=== PATIENT | female | born 1960 | race African-American/Black ===

== ENCOUNTER 2017-08-22 11:32 | Inpatient (IN) | payer OTHER ==
[~2017-08-22] VITALS: Ht 162.6 cm; Wt 79.8 kg
[~2017-08-22 11:32] MED LIST: ACETAMINOPHEN-1 EAC1 ORAL; ASPIRIN EC81 MG ORAL; AZITHROMYCIN250 MG ORAL; BENADRYL25 MG ORAL; COZAAR50 MG ORAL; GABAPENTIN100 MG ORAL; HYZAAR 100-12.1 EACH ORAL; IBUPROFEN600 MG ORAL; LIPITOR10 MG ORAL; MECLIZINE HCL25 MG ORAL; NAPROSYN375 M1 ORAL; NEURONTIN300 MG ORAL; NORCO 5-325 TA1 EAC1 ORAL; NORCO 5-325 TA1 EACH ORAL; NORVASC10 MG ORAL; OCEAN NASAL2 SPRAYS; UNOBMED; XANAX2 MG ORAL; ZITHROMAX250 MG ORAL; ZYRTEC10 MG ORAL
--- NOTE | 2017-08-22 11:50 | Emergency Room Report ---
History of Present Illness General Chief Complaint: Syncope Source: Patient, Medical Record Present Illness HPI Patient is a 56-year-old female who presented after increased left-sided increased pain and left-sided weakness. Patient reported having multiple falls recently. Patient states she has prior history of hypertension. Patient had recently passed out.The patient was brought in by private car.The patient reports having moderate headache. She prior history of thyroidectomy Allergies: Coded Allergies: CODEINE (Verified Allergy, Unknown, 02/23/16) TRAMADOL (Verified Allergy, Unknown, 04/08/15) Patient History Past Medical History: see triage record Reviewed Nursing Documentation: PMH: Agreed; PSxH: Agreed Nursing Documentation-PMH Past Medical History: No History, Except For Hx Hypertension: Yes Hx Pacemaker: No Hx Asthma: No Hx COPD: Yes Hx Diabetes: Yes - BORDERLINE Hx Cancer: No Hx Gastrointestinal Problems: Yes Hx Neurological Problems: Yes Hx Cerebrovascular Accident: No Hx Transient Ischemic Attacks: No Hx Dementia: No Hx Alzheimer's Disease: No Hx Parkinson's Disease: No Hx Meningitis: No Hx Encephalitis: No Hx Seizures: No Hx Epilepsy: No Hx Multiple Sclerosis: No Hx Cerebral Palsy: No Hx Amyotrophic Lat Sclerosis: No Hx Guillian-[place] Syndrome: No 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 Hx Peripheral Neuropathy: No Hx Spinal Cord Injury: No Hx Head Trauma: Yes Hx Traumatic Brain Injury: No Hx Memory Loss: No Hx Concentration Difficulty: No Hx Speech Problem: No Hx Tremors: No Hx Vertigo: No Hx Dizziness: Yes Hx Syncope: No Hx Headaches: Yes Hx Aphasia: No Hx Dysphasia: No Hx Numbness: No Hx Weakness: No Hx Fatigue: No Hx Neurologic Surgery: No Hx Brain Shunt: No Physical Exam Vital Signs Date Time Temp Pulse Resp B/P (MAP) Pulse Ox O2 Delivery O2 Flow Rate FiO2 08/22/17 11:41 98.3 80 17 119/64 97 Room Air 98.2 Sp02 EP Interpretation: reviewed, normal General Appearance: normal inspection, well appearing, no apparent distress, alert, obese Head: atraumatic ENT: normal ENT inspection, hearing grossly normal, normal voice Neck: normal inspection, full range of motion, supple, no bony tend Respiratory: normal inspection, lungs clear, normal breath sounds, no respiratory distress, no retraction, no wheezing Cardiovascular #1: regular rate, rhythm, no edema Gastrointestinal: normal inspection, normal bowel sounds, non tender, soft, no guarding, no hernia Genitourinary: no CVA tenderness Musculoskeletal: normal inspection, back normal, normal range of motion Neurologic: normal inspection, alert, responsive, speech normal, motor weakness - left side Psychiatric: normal inspection, judgement/insight normal, mood/affect normal Skin: normal inspection, normal color, no rash Medical Decision Making Diagnostic Impression: Primary Impression: Syncope Additional Impressions: H/O partial thyroidectomy Left-sided weakness ER Course Patient presented for left-sided weakness. The differential diagnosis included was not limited to fracture, CVA, contusion and among others.Because of complexity of patient's case laboratory testing and imaging studies were ordered. A CT imaging read by radiology showed a possible left internal capsule CVA. The patient was given pain medications. Laboratory studies were ordered.Patient was given aspirin.Dr. Hanks was contacted for inpatient management due to complexity of medical condition. Labs Test 08/22/17 11:55 08/22/17 12:30 White Blood Count 7.5 K/UL (4.8-10.8) Red Blood Count 4.22 M/UL (4.20-5.40) Hemoglobin 13.5 G/DL (12.0-16.0) Hematocrit 39.5 % (37.0-47.0) Mean Corpuscular Volume 94 FL (80-99) Mean Corpuscular Hemoglobin 32.1 PG (27.0-31.0) Mean Corpuscular Hemoglobin Concent 34.2 G/DL (32.0-36.0) Red Cell Distribution Width 11.5 % (11.6-14.8) Platelet Count 416 K/UL (150-450) Mean Platelet Volume 6.1 FL (6.5-10.1) Neutrophils (%) (Auto) 67.0 % (45.0-75.0) Lymphocytes (%) (Auto) 24.8 % (20.0-45.0) Monocytes (%) (Auto) 5.9 % (1.0-10.0) Eosinophils (%) (Auto) 0.5 % (0.0-3.0) Basophils (%) (Auto) 1.7 % (0.0-2.0) Sodium Level 139 MMOL/L (136-145) Potassium Level 3.5 MMOL/L (3.5-5.1) Chloride Level 102 MMOL/L (98-107) Carbon Dioxide Level 27 MMOL/L (21-32) Anion Gap 10 mmol/L (5-15) Blood Urea Nitrogen 5 mg/dL (7-18) Creatinine 1.0 MG/DL (0.55-1.30) Estimat Glomerular Filtration Rate > 60 mL/min (>60) Glucose Level 111 MG/DL (74-106) Calcium Level 9.4 MG/DL (8.5-10.1) Total Bilirubin 0.4 MG/DL (0.2-1.0) Aspartate Amino Transf (AST/SGOT) 20 U/L (15-37) Alanine Aminotransferase (ALT/SGPT) 24 U/L (12-78) Alkaline Phosphatase 72 U/L (46-116) Troponin I 0.000 ng/mL (0.000-0.056) Pro-B-Type Natriuretic Peptide 142 pg/mL (0-125) Total Protein 8.1 G/DL (6.4-8.2) Albumin 3.8 G/DL (3.4-5.0) Globulin 4.3 g/dL Albumin/Globulin Ratio 0.9 (1.0-2.7) Thyroid Stimulating Hormone (TSH) 0.769 uiU/mL (0.358-3.740) Serum Alcohol < 3 mg/dL Urine Color Pale yellow Urine Appearance Clear Urine pH 6.5 (4.5-8.0) Urine Specific [place] 1.005 (1.005-1.035) Urine Protein Negative (NEGATIVE) Urine Glucose (UA) Negative (NEGATIVE) Urine Ketones Negative (NEGATIVE) Urine Occult Blood Negative (NEGATIVE) Urine Nitrite Negative (NEGATIVE) Urine Bilirubin Negative (NEGATIVE) Urine Urobilinogen Normal MG/DL (0.0-1.0) Urine Leukocyte Esterase Negative (NEGATIVE) Urine RBC 0-2 /HPF (0 - 2) Urine WBC 0-2 /HPF (0 - 2) Urine Squamous Epithelial Cells Occasional /LPF Urine Bacteria Few /HPF (NONE) Urine Opiates Screen Negative (NEGATIVE) Urine Barbiturates Screen Negative (NEGATIVE) Phencyclidine (PCP) Screen Negative (NEGATIVE) Urine Amphetamines Screen Negative (NEGATIVE) Urine Benzodiazepines Screen Negative (NEGATIVE) Urine Cocaine Screen Negative (NEGATIVE) Urine Marijuana (THC) Screen Negative (NEGATIVE) Last Vital Signs Date Time Temp Pulse Resp B/P (MAP) Pulse Ox O2 Delivery O2 Flow Rate FiO2 08/22/17 11:41 98.3 80 17 119/64 97 Room Air 98.2 Status: unchanged Disposition: ADMITTED INPATIENT Condition: Serious HiteshHarry Aug 22, 2017 11:50
[2017-08-22 12:06] VITALS: BP 119/64
[2017-08-22 12:13] LABS: BASOPHILS % (AUTO) 1.7 % (0.0-2.0); EOSINOPHILS % (AUTO) 0.5 % (0.0-3.0); HEMATOCRIT 39.5 % (37.0-47.0); HEMOGLOBIN 13.5 G/DL (12.0-16.0); LYMPHOCYTES % (AUTO) 24.8 % (20.0-45.0); MEAN CORPUSCULAR VOLUME 94 FL (80-99); MONOCYTES % (AUTO) 5.9 % (1.0-10.0); PLATELET COUNT 416 K/UL (150-450); RED BLOOD COUNT 4.22 M/UL (4.20-5.40); RED CELL DISTRIBUTION WIDTH 11.5 % (11.6-14.8); WHITE BLOOD COUNT 7.5 K/UL (4.8-10.8)
[2017-08-22 12:24] LABS: ANION GAP 10 mmol/L (5-15); BLOOD UREA NITROGEN 5 mg/dL (7-18); CALCIUM 9.4 MG/DL (8.5-10.1); CARBON DIOXIDE 27 MMOL/L (21-32); CHLORIDE 102 MMOL/L (98-107); POTASSIUM 3.5 MMOL/L (3.5-5.1); SODIUM 139 MMOL/L (136-145)
[2017-08-22 12:39] LABS: ALANINE AMINOTRANSFERASE 24 U/L (12-78); ALBUMIN 3.8 G/DL (3.4-5.0); ALBUMIN/GLOBULIN RATIO 0.9 (1.0-2.7); ALKALINE PHOSPHATASE 72 U/L (46-116); ASPARTATE AMINO TRANSFERASE 20 U/L (15-37); BILIRUBIN,TOTAL 0.4 MG/DL (0.2-1.0)
[2017-08-22 12:54] LABS: APPEARANCE,URINE CLEAR; BILIRUBIN, URINE NEGATIVE (NEGATIVE); COLOR,URINE PALE YELLOW; GLUCOSE, URINE (UA) NEGATIVE (NEGATIVE); KETONES,URINE NEGATIVE (NEGATIVE); LEUKOCYTE ESTERASE ,URINE NEGATIVE (NEGATIVE); NITRITE,URINE NEGATIVE (NEGATIVE); PH,URINE 6.5 (4.5-8.0); PROTEIN,URINE NEGATIVE (NEGATIVE); UROBILINOGEN,URINE NORMAL MG/DL (0.0-1.0)
--- NOTE | 2017-08-22 12:55 | Diagnostic Imaging Report ---
Indications: Pain status post fall, left-sided weakness, headaches Technique: Spiral acquisitions obtained through the brain. Angled axial and coronal 5 x 5 mm slices were reconstructed. Total dose length product 1404.21 mGycm. CTDI vol(s) 70.38 mGy. Dose reduction achieved using automated exposure control Comparison: None. Findings: Subtle low-attenuation is seen in the anterior limb of the right internal capsule, could indicate an age indeterminate lacunar infarct. No acute intracranial hemorrhage or edema. No mass effect or midline shift. Normal phan-white differentiation. Intact ovarian. There is deformity of the left medial orbital wall. Sinuses are clear. The mastoids are clear Impression: Possible age-indeterminate right internal capsule lacunar infarct Negative for acute intracranial bleed or mass effect The CT scanner at [facility] is accredited by the [employer] and the scans are performed using protocols designed to limit radiation exposure to as low as reasonably achievable to attain images of sufficient resolution adequate for diagnostic evaluation.
[2017-08-22] MEDS ORDERED: Aspirin Baby 81mg ONE (13:38)
[2017-08-22] MEDS ORDERED: Aspirin Baby 81mg ORAL ONE (13:45)
[2017-08-22] MEDS ORDERED: Norco 5mg/325mg tab ORAL ONE (14:00)
[2017-08-22] MEDS ORDERED: Albuterol/Ipratropium 3ml neb HHN PRN (15:00)
[2017-08-22] MEDS ORDERED: Mylanta II UD 30ml ORAL PRN (15:00)
[2017-08-22] MEDS ORDERED: Miralax 17gm pkt ORAL PRN (15:00)
[2017-08-22] MEDS ORDERED: Nitroglycerin Subl 0.4mg tab SL PRN (15:00)
[2017-08-22] MEDS ORDERED: LORazepam Inj 2mg/ml 1ml IV PRN (15:00)
[2017-08-22 15:01] VITALS: BP 124/76
[2017-08-22 15:20] VITALS: BP 120/74
--- NOTE | 2017-08-22 16:20 | History and Physical ---
History of Present Illness General Date patient seen: Aug 22, 2017 Reason for Hospitalization: Syncope Present Illness HPI 56-year-old female with hx of HTN, CVA, thyroidectomy presented to ER with left-sided increased pain and weakness. Patient reported having multiple falls recently. she is complaining passed out recently .The patient reports having moderate headache. She is admitted to telemetry for possible CVA. Allergies: Coded Allergies: TRAMADOL (Verified Allergy, Unknown, 04/08/15) Medication History Scheduled Amlodipine Besylate (Norvasc), 10 MG ORAL TWICE A DAY, (Reported) Aspirin Ec* (Aspirin Ec*), 81 MG ORAL DAILY Atorvastatin Calcium* (Lipitor*), 10 MG ORAL BEDTIME Gabapentin* (Gabapentin*), 100 MG ORAL THREE TIMES A DAY, (Reported) Meclizine Hcl* (Meclizine*), 25 MG ORAL THREE TIMES A DAY Discontinued Medications Hydrocodone Bit/Acetaminophen 5-325* (Tofte 5-325 Tablet*), 1 TAB ORAL Q4H PRN for For Pain Discontinued Reason: Therapy completed Ibuprofen* (Motrin*), 800 MG ORAL THREE TIMES A DAY Discontinued Reason: Therapy completed Patient History Healthcare decision maker N Resuscitation status Advanced Directive on File Past Medical/Surgical History Past Medical/Surgical History: (1) H/O partial thyroidectomy (2) HTN (hypertension) (3) Osteoarthritis Family History Family History: Patient reports no known family medical history. Review of Systems Constitutional: Reports: no symptoms Eye: Reports: no symptoms ENT: Reports: no symptoms Musculoskeletal: Reports: other - left weakness Neurological: Reports: no symptoms Endocrine: Reports: no symptoms Physical Exam General Appearance: WD/WN Lines, tubes and drains: peripheral, central line HEENT: normocephalic, anicteric Neck: non-tender Respiratory/Chest: chest wall non-tender, lungs clear Abdomen: normal bowel sounds, non tender Extremities: normal range of motion Skin Exam: normal pigmentation Neurologic: motor weakness, other - left sided weaknes Last 24 Hour Vital Signs Date Time Temp Pulse Resp B/P (MAP) Pulse Ox O2 Delivery O2 Flow Rate FiO2 08/22/17 15:20 98.0 70 20 120/74 100 Room Air 98.0 08/22/17 15:01 98.0 80 18 124/76 98 Room Air 98.0 08/22/17 15:00 98.0 08/22/17 14:01 98.2 08/22/17 12:06 98.2 78 17 119/64 97 Room Air 98.2 08/22/17 11:41 98.3 80 17 119/64 97 Room Air 98.2 Laboratory Tests Test 08/22/17 11:55 08/22/17 12:30 White Blood Count 7.5 K/UL (4.8-10.8) Red Blood Count 4.22 M/UL (4.20-5.40) Hemoglobin 13.5 G/DL (12.0-16.0) Hematocrit 39.5 % (37.0-47.0) Mean Corpuscular Volume 94 FL (80-99) Mean Corpuscular Hemoglobin 32.1 PG (27.0-31.0) H Mean Corpuscular Hemoglobin Concent 34.2 G/DL (32.0-36.0) Red Cell Distribution Width 11.5 % (11.6-14.8) L Platelet Count 416 K/UL (150-450) Mean Platelet Volume 6.1 FL (6.5-10.1) L Neutrophils (%) (Auto) 67.0 % (45.0-75.0) Lymphocytes (%) (Auto) 24.8 % (20.0-45.0) Monocytes (%) (Auto) 5.9 % (1.0-10.0) Eosinophils (%) (Auto) 0.5 % (0.0-3.0) Basophils (%) (Auto) 1.7 % (0.0-2.0) Sodium Level 139 MMOL/L (136-145) Potassium Level 3.5 MMOL/L (3.5-5.1) Chloride Level 102 MMOL/L (98-107) Carbon Dioxide Level 27 MMOL/L (21-32) Anion Gap 10 mmol/L (5-15) Blood Urea Nitrogen 5 mg/dL (7-18) L Creatinine 1.0 MG/DL (0.55-1.30) Estimat Glomerular Filtration Rate > 60 mL/min (>60) Glucose Level 111 MG/DL (74-106) H Calcium Level 9.4 MG/DL (8.5-10.1) Total Bilirubin 0.4 MG/DL (0.2-1.0) Aspartate Amino Transf (AST/SGOT) 20 U/L (15-37) Alanine Aminotransferase (ALT/SGPT) 24 U/L (12-78) Alkaline Phosphatase 72 U/L (46-116) Troponin I 0.000 ng/mL (0.000-0.056) Pro-B-Type Natriuretic Peptide 142 pg/mL (0-125) H Total Protein 8.1 G/DL (6.4-8.2) Albumin 3.8 G/DL (3.4-5.0) Globulin 4.3 g/dL Albumin/Globulin Ratio 0.9 (1.0-2.7) L Thyroid Stimulating Hormone (TSH) 0.769 uiU/mL (0.358-3.740) Serum Alcohol < 3 mg/dL Urine Color Pale yellow Urine Appearance Clear Urine pH 6.5 (4.5-8.0) Urine Specific [place] 1.005 (1.005-1.035) Urine Protein Negative (NEGATIVE) Urine Glucose (UA) Negative (NEGATIVE) Urine Ketones Negative (NEGATIVE) Urine Occult Blood Negative (NEGATIVE) Urine Nitrite Negative (NEGATIVE) Urine Bilirubin Negative (NEGATIVE) Urine Urobilinogen Normal MG/DL (0.0-1.0) Urine Leukocyte Esterase Negative (NEGATIVE) Urine RBC 0-2 /HPF (0 - 2) Urine WBC 0-2 /HPF (0 - 2) Urine Squamous Epithelial Cells Occasional /LPF Urine Bacteria Few /HPF (NONE) Urine Opiates Screen Negative (NEGATIVE) Urine Barbiturates Screen Negative (NEGATIVE) Phencyclidine (PCP) Screen Negative (NEGATIVE) Urine Amphetamines Screen Negative (NEGATIVE) Urine Benzodiazepines Screen Negative (NEGATIVE) Urine Cocaine Screen Negative (NEGATIVE) Urine Marijuana (THC) Screen Negative (NEGATIVE) Height (Feet): 5 Height (Inches): 3.00 Weight (Pounds): 160 Medications Current Medications Medications (Trade) Dose Ordered Sig/Henri Route PRN Reason Start Time Stop Time Status Last Admin Dose Admin Acetaminophen (Tylenol) 650 mg Q4H PRN ORAL fever 08/22/17 15:00 09/21/17 14:59 Al Hydroxide/Mg Hydroxide (Mylanta II) 30 ml Q6H PRN ORAL dyspepsia 08/22/17 15:00 09/21/17 14:59 Albuterol/ Ipratropium (Albuterol/ Ipratropium) 3 ml Q4H PRN HHN Shortness of Breath 08/22/17 15:00 08/27/17 14:59 Amlodipine Besylate (Norvasc) 10 mg TWICE A DAY ORAL 08/22/17 18:00 09/21/17 17:59 Clonidine HCl (Catapres Tab) 0.1 mg Q4H PRN ORAL SBP > 150 08/22/17 15:00 09/21/17 14:59 Dextrose (Dextrose 50%) 25 ml STAT PRN IV BLOOD SUGAR BTWN 60-69 mg/dL 08/22/17 15:30 09/21/17 15:29 Dextrose (Dextrose 50%) 50 ml STAT PRN IV BLOOD SUGAR < 60 mg/dL 08/22/17 15:30 09/21/17 14:59 Gabapentin (Neurontin) 100 mg THREE TIMES A DAY ORAL 08/22/17 18:00 09/21/17 17:59 Heparin Sodium (Porcine) (Heparin 5000 units/ml) 5,000 units EVERY 12 HOURS SUBQ 08/22/17 21:00 09/21/17 20:59 Lorazepam (Ativan 2mg/ml 1ml) 0.5 mg Q4H PRN IV For Anxiety 08/22/17 15:00 08/29/17 14:59 Meclizine HCl (Antivert) 25 mg THREE TIMES A DAY ORAL 08/22/17 18:00 09/21/17 17:59 Nitroglycerin (Ntg) 0.4 mg Q5M X 3 DOSES PRN SL Prn Chest Pain 08/22/17 15:00 09/21/17 14:59 Ondansetron HCl (Zofran) 4 mg Q6H PRN IVP Nausea & Vomiting 08/22/17 15:00 09/21/17 14:59 Polyethylene Glycol (Miralax) 17 gm HSPRN PRN ORAL Constipation 08/22/17 15:00 09/21/17 14:59 Temazepam (Restoril) 15 mg HSPRN PRN ORAL Insomnia 08/22/17 15:00 08/29/17 14:59 Assessment/Plan Problem List: (1) Acute CVA (cerebrovascular accident) ICD Codes: I63.9 - Cerebral infarction, unspecified SNOMED: 925310252, 187654208 (2) Syncope ICD Codes: R55 - Syncope and collapse SNOMED: 880719262 (3) HTN (hypertension) ICD Codes: I10 - Essential (primary) hypertension SNOMED: 00204175 (4) Osteoarthritis ICD Codes: M19.90 - Unspecified osteoarthritis, unspecified site SNOMED: 992036787 (5) Left-sided weakness ICD Codes: R53.1 - Weakness SNOMED: 838295599 Assessment/Plan telemetry admit frequent neuro checks Neuro evaluation echo doppler of carotid artery Monitor BP dvt prophylaxis symptomatic treatment Mervin Hanks MD Aug 22, 2017 16:20
[2017-08-22] MEDS: Meclizine 25mg tab ORAL SCH (18:32)
[2017-08-22] MEDS: Norco 5mg/325mg tab ORAL PRN ×2 (18:32→22:28)
--- NOTE | 2017-08-22 19:19 | Consultation ---
Consult Note Consult Note NEUROLOGY CONSULTATION: Full note dictated #[id number] 56 y/o, RH, BF with PH of thyroid problems s/p surgery, disability since age 34, HTN, DM, DL, and for the last few months frequent falls. She was hospitalized today for increased left-sided pain and weakness, and multiple falls. ON EXAM: Problems with memory, HCF, VSF Left VII central Left paresis with give way Left hemisensory deficit Globally diminished DTRs - L>R Left paretic gait. IMPRESSION: Right brain stroke with left paresis - old vs new. REC: MRI brain Carotid duplex. Labs for stroke W/U STOP smoking RFM - BP <120/80 - LDL <70 - ASA 81 mg - HB A1C <6 PT/OT Homa Paul M.D., M.S.P.H. HOMA PAUL Aug 22, 2017 19:19
[2017-08-22 20:00] VITALS: BP 123/64
[2017-08-22] MEDS: Heparin 5000 units/ml inj SUBQ SCH (20:24)
[2017-08-23] VITALS: BP 134/94
--- NOTE | 2017-08-23 00:15 | Consultation ---
DATE OF CONSULTATION: 08/22/2017 NEUROLOGY CONSULTATION CONSULTING PHYSICIAN: Jairon Paul M.D. REQUESTING PHYSICIAN: Mervin Hanks M.D. HISTORY: Ms. Alfie Ferrell is a 56-year-old, right-handed, black lady, who does have a past history of thyroid problems for numerous years status post surgery following which she has been disabled since age 34. The exact etiology for disability is quite unclear to me. She also has a history of hypertension, diabetes mellitus, dyslipidemia, and for the last few months, frequent falls. She was hospitalized on 08/22/17 for increasing left-sided pain, increasing left-sided weakness, and multiple falls. This consultation was requested to evaluate the patient from a neurological point of view. The patient was quite cryptic about her entire history and the accuracy of the history was quite difficult to ascertain. She, however, tells me that the left side has been weak and painful for quite some time now. PAST MEDICAL HISTORY: Significant for hypertension, diabetes mellitus, dyslipidemia, thyroid problems for which she has had thyroid surgery, and a long history of disability. FAMILY HISTORY: Significant for high blood pressure and diabetes mellitus in other family members. PERSONAL HISTORY: Home: She lives alone. Work: She has been disabled for numerous years. She would not tell me what she did in the past. Habits: She smokes approximately 10 cigarettes per day and in the past has smoked larger quantities of cigarettes. She has a rare alcoholic drink. She denies use of any illicit drugs. MEDICATIONS: Present medications include heparin for DVT prophylaxis, amlodipine, gabapentin, meclizine, [place], DuoNeb, Tylenol, MiraLAX, Zofran, Ativan, temazepam, Mylanta, nitroglycerin, and clonidine. PHYSICAL EXAMINATION: GENERAL: She is a well-developed, well-nourished black lady, lying in bed, in no acute distress. VITAL SIGNS: Pulse 74 per minute, blood pressure 120/74 mmHg, respirations 20 per minute, and temperature 98 degrees Fahrenheit. HEAD: Normocephalic and atraumatic. EENT: Examination benign. NECK: No neck rigidity was observed. NEUROLOGIC EXAMINATION: MENTAL STATUS EXAMINATION: She was awake and alert. She was oriented to person, place, and time. She was able to recall 3/3 words immediately, but could only remember 2/3 words in 1 minute and 3 minutes. She was able to remember presidents Trump and Obama, but needed hints to remember through Rusty. She could not remember presidents prior to Rusty. Her mathematical skills were impaired. Her visuospatial function was also impaired. SPEECH: She had mild dysarthria. LANGUAGE: She had anomia for low-frequency words. CRANIAL NERVE EXAMINATION: II: The visual raman were intact to confrontation testing. III, IV & : The external ocular movements were full and the pupils 3 mm in diameter, equal, round, regular, and reactive to light. V: She had normal facial sensations, and the temporales, masseters, and pterygoids functioned normally. VII: She had a mild left seventh central facial paresis. VIII: She was able to hear well bilaterally and had no nystagmus. IX: The palate moved symmetrically on phonation. X: She had no hoarseness of voice. XI: The sternocleidomastoids and trapezii functioned normally. XII: The tongue was in the midline without any fasciculations or atrophy. MOTOR SYSTEM: The tone was normal in all four extremities. Examination of muscle mass revealed no focal wasting. Examination of power revealed G 5/5 power except for G 4+/5 power in the left finger extensors and iliopsoas. It should be noted that on the left side, she exhibited significant give-way weakness making it quite difficult to determine how much of the weakness was true and how much of it was not. SENSORY EXAMINATION: She had significant alteration to pinprick and light touch over entire left body. REFLEXES: 1+ on the right and 1++ on the left at the biceps, triceps, brachioradialis, and knees, 0 at both ankles. The plantar responses were flexor bilaterally. COORDINATION: She performed well on hitpec-[id number] and dike-uy-ihyw testing. She was unable to perform Romberg test. STANCE: She stood up with support. GAIT: She walks with support with a left paretic gait. DIAGNOSTIC IMPRESSION: 1. Ms. Alfie Ferrell is a 56-year-old, right-handed, black lady, who does have a past history of thyroid problems for which she has had surgery, disability with a chronic pain syndrome since age 34, hypertension, diabetes mellitus, dyslipidemia, and for the last few months, frequent falls. 2. On neurological examination, at this time, she does have problems with memory, higher cognitive function, and visuospatial function. She also has a mild left seventh central facial paresis, left hemiparesis with significant give-way weakness, a left hemisensory deficit, globally diminished deep tendon reflexes that are slightly brisker on the left side than on the right, and a left paretic gait. 3. Laboratory data obtained thus far have revealed a relatively normal CBC. Chemistry panel with glucose elevated to 111 and a proBNP elevated to 142. A TSH that is normal. The urine toxicology screen is benign and so is the urinalysis. 4. The CT scan of the brain reveals a possible lacunar infarct in the right internal capsule of indeterminate age. 5. The patient's history and neurological examination are most compatible with a right brain stroke associated with the left hemiparesis causing significant left-sided weakness, significant altered sensation over the left body and in turn, the frequent falls. It is unclear if this stroke is old or new. RECOMMENDATIONS: 1. Agree with management thus far. 2. An MRI scan of the brain will be ordered to evaluate the patient for the age of the stroke. 3. A cerebrovascular noninvasive profile should be performed to evaluate the patient for hemodynamically significant carotid disease. 4. The patient should be worked up thoroughly for other treatable causes of cerebrovascular disease with in addition to the laboratory tests already done, an ESR, RPR, glycohemoglobin, Westergren sedimentation rate, and fasting serum lipid panel. 5. The patient was instructed to stop smoking immediately. 6. Strict risk factor modification should be implemented with the patient's blood pressure goal being less than or equal to 120/80, LDL goal being less than 70, hemoglobin A1c goal at less than 6%, and in addition, she should be started on aspirin 81 mg daily. 7. She should be started on a course of physical and occupational therapy to rehabilitate her. Thank you for entrusting me with the care Ms. Ferrell. I shall follow her with you. Jairon Paul M.D., M.S.P.H. DR: THELMA JOB#: [id number] [facility]ITAL[facility]
[2017-08-23] MEDS: Norco 5mg/325mg tab ORAL PRN ×5 (02:26→21:46)
[2017-08-23 04:00] VITALS: BP 92/56
[2017-08-23 08:00] VITALS: BP 137/77
[2017-08-23 08:27] LABS: BASOPHILS % (AUTO) 1.9 % (0.0-2.0); EOSINOPHILS % (AUTO) 1.8 % (0.0-3.0); HEMATOCRIT 38.3 % (37.0-47.0); HEMOGLOBIN 12.8 G/DL (12.0-16.0); LYMPHOCYTES % (AUTO) 45.1 % (20.0-45.0); MEAN CORPUSCULAR VOLUME 94 FL (80-99); MONOCYTES % (AUTO) 7.8 % (1.0-10.0); NEUTROPHILS % (AUTO) 43.6 % (45.0-75.0); PLATELET COUNT 395 K/UL (150-450); RED BLOOD COUNT 4.07 M/UL (4.20-5.40); RED CELL DISTRIBUTION WIDTH 11.2 % (11.6-14.8)
[2017-08-23] MEDS: Aspirin Baby 81mg ORAL SCH (08:36)
[2017-08-23] MEDS: Meclizine 25mg tab ORAL SCH ×3 (08:36→17:30)
[2017-08-23] MEDS: Heparin 5000 units/ml inj SUBQ SCH ×2 (08:39→21:45)
[2017-08-23 08:53] LABS: ALANINE AMINOTRANSFERASE 21 U/L (12-78); ALBUMIN 3.6 G/DL (3.4-5.0); ALBUMIN/GLOBULIN RATIO 0.9 (1.0-2.7); ALKALINE PHOSPHATASE 65 U/L (46-116); ANION GAP 11 mmol/L (5-15); ASPARTATE AMINO TRANSFERASE 18 U/L (15-37); BILIRUBIN,TOTAL 0.6 MG/DL (0.2-1.0); BLOOD UREA NITROGEN 8 mg/dL (7-18); CALCIUM 9.3 MG/DL (8.5-10.1); CARBON DIOXIDE 26 MMOL/L (21-32); CHLORIDE 105 MMOL/L (98-107); CHOLESTEROL 237 MG/DL (< 200); CREATININE 0.7 MG/DL (0.55-1.30); HDL CHOLESTEROL 55 MG/DL (40-60); POTASSIUM 3.4 MMOL/L (3.5-5.1); SODIUM 142 MMOL/L (136-145); TRIGLYCERIDES 172 MG/DL (30-150)
--- NOTE | 2017-08-23 11:12 | Pulmonology Progress Note ---
Assessment/Plan Problems: (1) Acute CVA (cerebrovascular accident) (2) Syncope (3) HTN (hypertension) (4) Osteoarthritis (5) Left-sided weakness Assessment/Plan telemetry admit frequent neuro checks Neuro evaluation echo doppler of carotid artery Monitor BP dvt prophylaxis symptomatic treatment Subjective ROS Limited/Unobtainable: No Constitutional: Reports: no symptoms Respiratory: Reports: no symptoms Allergies: Coded Allergies: TRAMADOL (Verified Allergy, Unknown, 04/08/15) Objective Last 24 Hour Vital Signs Date Time Temp Pulse Resp B/P (MAP) Pulse Ox O2 Delivery O2 Flow Rate FiO2 08/23/17 08:35 84 137/77 08/23/17 08:00 98.1 84 18 137/77 98 98.1 08/23/17 04:00 65 08/23/17 04:00 97.2 98 20 92/56 97 97.2 08/23/17 03:25 97.2 08/23/17 02:26 98.4 08/23/17 00:00 76 08/23/17 00:00 98.4 74 18 134/94 98 Room Air 98.4 08/22/17 22:28 98.4 08/22/17 20:00 98.4 74 16 123/64 92 98.4 08/22/17 20:00 75 08/22/17 20:00 92 Room Air 08/22/17 18:32 98.0 08/22/17 18:32 74 120/74 08/22/17 16:36 98.0 74 20 120/74 100 Room Air 98.0 08/22/17 15:20 98.0 70 20 120/74 100 Room Air 98.0 08/22/17 15:01 98.0 80 18 124/76 98 Room Air 98.0 08/22/17 15:00 98.0 08/22/17 14:01 98.2 08/22/17 12:06 98.2 78 17 119/64 97 Room Air 98.2 08/22/17 11:41 98.3 80 17 119/64 97 Room Air 98.2 Intake and Output 08/22/17 08/23/17 19:00 07:00 Intake Total 120 ml Output Total 0 ml 400 ml Balance 120 ml -400 ml Intake Oral 120 ml Output Urine Total 0 ml 400 ml # Bowel Movements 1 Objective General Appearance: WD/WN Lines, tubes and drains: peripheral, central line HEENT: normocephalic, anicteric Neck: non-tender Respiratory/Chest: chest wall non-tender, lungs clear Abdomen: normal bowel sounds, non tender Extremities: normal range of motion Skin Exam: normal pigmentation Neurologic: motor weakness, other - left sided weaknes Laboratory Tests 08/22/17 11:55: White Blood Count 7.5, Red Blood Count 4.22, Hemoglobin 13.5, Hematocrit 39.5, Mean Corpuscular Volume 94, Mean Corpuscular Hemoglobin 32.1H, Mean Corpuscular Hemoglobin Concent 34.2, Red Cell Distribution Width 11.5L, Platelet Count 416, Mean Platelet Volume 6.1L, Neutrophils (%) (Auto) 67.0, Lymphocytes (%) (Auto) 24.8, Monocytes (%) (Auto) 5.9, Eosinophils (%) (Auto) 0.5, Basophils (%) (Auto ) 1.7, Erythrocyte Sedimentation Rate 32H, Sodium Level 139, Potassium Level 3.5 , Chloride Level 102, Carbon Dioxide Level 27, Anion Gap 10, Blood Urea Nitrogen 5L, Creatinine 1.0, Estimat Glomerular Filtration Rate > 60, Glucose Level 111H, Hemoglobin A1c 5.3, Calcium Level 9.4, Total Bilirubin 0.4, Aspartate Amino Transf (AST/SGOT) 20, Alanine Aminotransferase (ALT/SGPT) 24, Alkaline Phosphatase 72, Troponin I 0.000, Pro-B-Type Natriuretic Peptide 142H, Total Protein 8.1, Albumin 3.8, Globulin 4.3, Albumin/Globulin Ratio 0.9L, Vitamin B12 Level 750, Vitamin D 25-Hydroxy [Pending], 25-Hydroxy Vitamin D2 [ Pending], 25-Hydroxy Vitamin D3 [Pending], Folate 16.6, Thyroid Stimulating Hormone (TSH) 0.769, Serum Alcohol < 3, Rapid Plasma Reagin [Pending] 08/22/17 12:30: Urine Color Pale yellow, Urine Appearance Clear, Urine pH 6.5, Urine Specific Kendall 1.005, Urine Protein Negative, Urine Glucose (UA) Negative, Urine Ketones Negative, Urine Occult Blood Negative, Urine Nitrite Negative, Urine Bilirubin Negative, Urine Urobilinogen Normal, Urine Leukocyte Esterase Negative , Urine RBC 0-2, Urine WBC 0-2, Urine Squamous Epithelial Cells Occasional, Urine Bacteria Few, Urine Opiates Screen Negative, Urine Barbiturates Screen Negative, Phencyclidine (PCP) Screen Negative, Urine Amphetamines Screen Negative, Urine Benzodiazepines Screen Negative, Urine Cocaine Screen Negative, Urine Marijuana (THC) Screen Negative 08/23/17 06:30: White Blood Count 6.0, Red Blood Count 4.07L, Hemoglobin 12.8, Hematocrit 38.3, Mean Corpuscular Volume 94, Mean Corpuscular Hemoglobin 31.4H, Mean Corpuscular Hemoglobin Concent 33.4, Red Cell Distribution Width 11.2L, Platelet Count 395, Mean Platelet Volume 5.8L, Neutrophils (%) (Auto) 43.6L, Lymphocytes (%) (Auto) 45.1H, Monocytes (%) (Auto) 7.8, Eosinophils (%) (Auto) 1.8, Basophils (%) (Auto ) 1.9, Sodium Level 142, Potassium Level 3.4L, Chloride Level 105, Carbon Dioxide Level 26, Anion Gap 11, Blood Urea Nitrogen 8, Creatinine 0.7, Estimat Glomerular Filtration Rate > 60, Glucose Level 91, Calcium Level 9.3, Total Bilirubin 0.6, Aspartate Amino Transf (AST/SGOT) 18, Alanine Aminotransferase ( ALT/SGPT) 21, Alkaline Phosphatase 65, Total Protein 7.4, Albumin 3.6, Globulin 3.8, Albumin/Globulin Ratio 0.9L, Prothrombin Time 10.3, Prothromb Time International Ratio 1.0, Activated Partial Thromboplast Time 27, Triglycerides Level 172H, Cholesterol Level 237H, LDL Cholesterol 150H, HDL Cholesterol 55, Cholesterol/HDL Ratio 4.3 Current Medications Medications (Trade) Dose Ordered Sig/Henri Route PRN Reason Start Time Stop Time Status Last Admin Dose Admin Acetaminophen (Tylenol) 650 mg Q4H PRN ORAL fever 08/22/17 15:00 09/21/17 14:59 Acetaminophen/ Hydrocodone Bitart ([place] 5/325) 1 tab Q4H PRN ORAL Moderate Pain (Pain Scale 4-6) 08/22/17 18:00 08/29/17 17:59 08/23/17 07:56 Al Hydroxide/Mg Hydroxide (Mylanta II) 30 ml Q6H PRN ORAL dyspepsia 08/22/17 15:00 09/21/17 14:59 Albuterol/ Ipratropium (Albuterol/ Ipratropium) 3 ml Q4H PRN HHN Shortness of Breath 08/22/17 15:00 08/27/17 14:59 Amlodipine Besylate (Norvasc) 10 mg TWICE A DAY ORAL 08/22/17 18:00 09/21/17 17:59 08/23/17 08:35 Aspirin (ASA) 81 mg DAILY ORAL 08/23/17 09:00 09/22/17 08:59 08/23/17 08:36 Clonidine HCl (Catapres Tab) 0.1 mg Q4H PRN ORAL SBP > 150 08/22/17 15:00 09/21/17 14:59 Dextrose (Dextrose 50%) 25 ml STAT PRN IV BLOOD SUGAR BTWN 60-69 mg/dL 08/22/17 15:30 09/21/17 15:29 Dextrose (Dextrose 50%) 50 ml STAT PRN IV BLOOD SUGAR < 60 mg/dL 08/22/17 15:30 09/21/17 14:59 Gabapentin (Neurontin) 100 mg THREE TIMES A DAY ORAL 08/22/17 18:00 09/21/17 17:59 08/23/17 08:35 Heparin Sodium (Porcine) (Heparin 5000 units/ml) 5,000 units EVERY 12 HOURS SUBQ 08/22/17 21:00 09/21/17 20:59 08/23/17 08:39 Lorazepam (Ativan 2mg/ml 1ml) 0.5 mg Q4H PRN IV For Anxiety 08/22/17 15:00 08/29/17 14:59 08/23/17 09:59 Meclizine HCl (Antivert) 25 mg THREE TIMES A DAY ORAL 08/22/17 18:00 09/21/17 17:59 08/23/17 08:36 Nitroglycerin (Ntg) 0.4 mg Q5M X 3 DOSES PRN SL Prn Chest Pain 08/22/17 15:00 09/21/17 14:59 Ondansetron HCl (Zofran) 4 mg Q6H PRN IVP Nausea & Vomiting 08/22/17 15:00 09/21/17 14:59 Polyethylene Glycol (Miralax) 17 gm HSPRN PRN ORAL Constipation 08/22/17 15:00 09/21/17 14:59 Temazepam (Restoril) 15 mg HSPRN PRN ORAL Insomnia 08/22/17 15:00 08/29/17 14:59 08/22/17 22:28 Mervin Hanks MD Aug 23, 2017 11:12
[2017-08-23 12:00] VITALS: BP 124/72
--- NOTE | 2017-08-23 12:08 | Diagnostic Imaging Report ---
Indication: Left sided weakness, history of head trauma Technique: sagittal T1 fast spin echo, axial T1 FLAIR, axial T2 FLAIR, axial T2 FS PROPELLER, axial T2* GRE, axial diffusion weighted images. ADC and exponential ADC maps generated Comparison: Head CT 08/22/2017 Findings: No abnormal areas of restricted diffusion to suggest acute infarction. Tiny old lacunar infarct is seen in the inferior left lentiform nucleus. No acute hemorrhage or edema. No mass effect nor midline shift. Normal size ventricles and extra axial CSF spaces. The vascular flow voids are preserved. Visualized orbits and sinuses are unremarkable. Empty sella is incidentally noted. Patent cavum septum pellucidum Impression: Negative for acute intracranial bleed, mass effect, or infarct. Specifically, no abnormality seen to correspond to question abnormality of the right internal capsule described on recent CT scan. That finding was presumably artifactual. Incidental findings of empty sella, patent cavum septum pellucidum Tiny old lacunar infarct in the inferior left lentiform nucleus
[2017-08-23 16:00] VITALS: BP 122/63
--- NOTE | 2017-08-23 16:24 | Cardiology Report ---
APPROVED REPORT EXAM: Two-dimensional and M-mode echocardiogram with Doppler and color Doppler. INDICATION LV function M-Mode DIMENSIONS IVSd1.6 (0.7-1.1cm)Left Atrium (MM)3.3 (1.6-4.0cm) LVDd5.1 (3.5-5.6cm)Aortic Root3.0 (2.0-3.7cm) PWd1.6 (0.7-1.1cm)Aortic Cusp Exc.1.8 (1.5-2.0cm) LVDs3.3 (2.5-4.0cm) PWs2.2 cm Normal left ventricular chamber size, systolic function and wall motion. Left ventricular ejection fraction estimated to be 65 %. Moderate left ventricular hypertrophy. No evidence of pericardial effusion. All other cardiac chamber sizes are within normal limits. Focal aortic valve sclerosis with adequate cusp excursion. Thickened mitral valve leaflets with normal excursion. Mitral annulus and aortic root calcification. Normal pulmonic valve structure. Normal tricuspid valve structure. IVC at normal size with physiologic collapse. A color flow and spectral Doppler study was performed and revealed: Moderate aortic regurgitation. Trace mitral regurgitation. Mitral diastolic velocities suggest reduced left ventricular relaxation c/w mild LV diastolic dysfunction (Grade I). Moderate tricuspid regurgitation. Tricuspid systolic velocities suggests peak right ventricular systolic pressure of 45 mmHg, consistent with borderline moderate pulmonary hypertension. Pulmonic regurgitation present.
--- NOTE | 2017-08-23 17:01 | Cardiology Report ---
APPROVED REPORT EKG Measurement Heart [id number] CO [id number] Normal sinus rhythm Septal infarct, age undetermined Abnormal ECG
[2017-08-23 20:00] VITALS: BP 126/75
--- NOTE | 2017-08-23 20:30 | Cardiology Progress Note ---
Assessment/Plan Assessment/Plan [id number] likey orthostatic related syncope due to recent use of diuretic repeat trop check orthostatic vital avoid hctz in future use of arbs or acie for better bpo control in future Objective Last 24 Hour Vital Signs Date Time Temp Pulse Resp B/P (MAP) Pulse Ox O2 Delivery O2 Flow Rate FiO2 08/23/17 17:32 61 122/63 08/23/17 16:00 98.2 68 18 122/63 97 98.2 08/23/17 16:00 63 08/23/17 12:00 97.2 86 18 124/72 98 97.2 08/23/17 12:00 68 08/23/17 08:35 84 137/77 08/23/17 08:00 98.1 84 18 137/77 98 98.1 08/23/17 08:00 70 08/23/17 04:00 65 08/23/17 04:00 97.2 98 20 92/56 97 97.2 08/23/17 03:25 97.2 08/23/17 02:26 98.4 08/23/17 00:00 76 08/23/17 00:00 98.4 74 18 134/94 98 Room Air 98.4 08/22/17 22:28 98.4 Intake and Output 08/22/17 08/23/17 19:00 07:00 Intake Total 120 ml Output Total 0 ml 400 ml Balance 120 ml -400 ml Intake Oral 120 ml Output Urine Total 0 ml 400 ml # Bowel Movements 1 Laboratory Tests Test 08/23/17 06:30 White Blood Count 6.0 K/UL (4.8-10.8) Red Blood Count 4.07 M/UL (4.20-5.40) L Hemoglobin 12.8 G/DL (12.0-16.0) Hematocrit 38.3 % (37.0-47.0) Mean Corpuscular Volume 94 FL (80-99) Mean Corpuscular Hemoglobin 31.4 PG (27.0-31.0) H Mean Corpuscular Hemoglobin Concent 33.4 G/DL (32.0-36.0) Red Cell Distribution Width 11.2 % (11.6-14.8) L Platelet Count 395 K/UL (150-450) Mean Platelet Volume 5.8 FL (6.5-10.1) L Neutrophils (%) (Auto) 43.6 % (45.0-75.0) L Lymphocytes (%) (Auto) 45.1 % (20.0-45.0) H Monocytes (%) (Auto) 7.8 % (1.0-10.0) Eosinophils (%) (Auto) 1.8 % (0.0-3.0) Basophils (%) (Auto) 1.9 % (0.0-2.0) Prothrombin Time 10.3 SEC (9.30-11.50) Prothromb Time International Ratio 1.0 (0.9-1.1) Activated Partial Thromboplast Time 27 SEC (23-33) Sodium Level 142 MMOL/L (136-145) Potassium Level 3.4 MMOL/L (3.5-5.1) L Chloride Level 105 MMOL/L (98-107) Carbon Dioxide Level 26 MMOL/L (21-32) Anion Gap 11 mmol/L (5-15) Blood Urea Nitrogen 8 mg/dL (7-18) Creatinine 0.7 MG/DL (0.55-1.30) Estimat Glomerular Filtration Rate > 60 mL/min (>60) Glucose Level 91 MG/DL (74-106) Calcium Level 9.3 MG/DL (8.5-10.1) Total Bilirubin 0.6 MG/DL (0.2-1.0) Aspartate Amino Transf (AST/SGOT) 18 U/L (15-37) Alanine Aminotransferase (ALT/SGPT) 21 U/L (12-78) Alkaline Phosphatase 65 U/L (46-116) Total Protein 7.4 G/DL (6.4-8.2) Albumin 3.6 G/DL (3.4-5.0) Globulin 3.8 g/dL Albumin/Globulin Ratio 0.9 (1.0-2.7) L Triglycerides Level 172 MG/DL (30-150) H Cholesterol Level 237 MG/DL (< 200) H LDL Cholesterol 150 mg/dL (<100) H HDL Cholesterol 55 MG/DL (40-60) Cholesterol/HDL Ratio 4.3 (3.3-4.4) MOLLY RAE Aug 23, 2017 20:30
--- NOTE | 2017-08-23 21:06 | Neurology Progress Note ---
Interim History Interim History Interim History Ms. Ferrell feels much better today. She feels stronger. The left side is significantly stronger. The altered sensation on the left side is also better. She denies any new neurologic symptoms. Review of Systems Neuro Review of Systems Benign. Objective Physical Exam Last Vital Signs Date Time Temp Pulse Resp B/P (MAP) Pulse Ox O2 Delivery O2 Flow Rate FiO2 08/23/17 17:32 61 122/63 08/23/17 16:00 98.2 18 97 98.2 08/23/17 00:00 Room Air Laboratory Tests Test 08/23/17 06:30 White Blood Count 6.0 K/UL (4.8-10.8) Red Blood Count 4.07 M/UL (4.20-5.40) L Hemoglobin 12.8 G/DL (12.0-16.0) Hematocrit 38.3 % (37.0-47.0) Mean Corpuscular Volume 94 FL (80-99) Mean Corpuscular Hemoglobin 31.4 PG (27.0-31.0) H Mean Corpuscular Hemoglobin Concent 33.4 G/DL (32.0-36.0) Red Cell Distribution Width 11.2 % (11.6-14.8) L Platelet Count 395 K/UL (150-450) Mean Platelet Volume 5.8 FL (6.5-10.1) L Neutrophils (%) (Auto) 43.6 % (45.0-75.0) L Lymphocytes (%) (Auto) 45.1 % (20.0-45.0) H Monocytes (%) (Auto) 7.8 % (1.0-10.0) Eosinophils (%) (Auto) 1.8 % (0.0-3.0) Basophils (%) (Auto) 1.9 % (0.0-2.0) Prothrombin Time 10.3 SEC (9.30-11.50) Prothromb Time International Ratio 1.0 (0.9-1.1) Activated Partial Thromboplast Time 27 SEC (23-33) Sodium Level 142 MMOL/L (136-145) Potassium Level 3.4 MMOL/L (3.5-5.1) L Chloride Level 105 MMOL/L (98-107) Carbon Dioxide Level 26 MMOL/L (21-32) Anion Gap 11 mmol/L (5-15) Blood Urea Nitrogen 8 mg/dL (7-18) Creatinine 0.7 MG/DL (0.55-1.30) Estimat Glomerular Filtration Rate > 60 mL/min (>60) Glucose Level 91 MG/DL (74-106) Calcium Level 9.3 MG/DL (8.5-10.1) Total Bilirubin 0.6 MG/DL (0.2-1.0) Aspartate Amino Transf (AST/SGOT) 18 U/L (15-37) Alanine Aminotransferase (ALT/SGPT) 21 U/L (12-78) Alkaline Phosphatase 65 U/L (46-116) Total Protein 7.4 G/DL (6.4-8.2) Albumin 3.6 G/DL (3.4-5.0) Globulin 3.8 g/dL Albumin/Globulin Ratio 0.9 (1.0-2.7) L Triglycerides Level 172 MG/DL (30-150) H Cholesterol Level 237 MG/DL (< 200) H LDL Cholesterol 150 mg/dL (<100) H HDL Cholesterol 55 MG/DL (40-60) Cholesterol/HDL Ratio 4.3 (3.3-4.4) Neurologic Exam Objective PHYSICAL EXAMINATION: GENERAL: She is a well-developed, well-nourished black lady, lying in bed, in no acute distress. HEAD: Normocephalic and atraumatic. EENT: Examination benign. NECK: No neck rigidity was observed. NEUROLOGIC EXAMINATION: MENTAL STATUS EXAMINATION: She was awake and alert. She was oriented to person, place, and time. She was able to recall 3/3 words immediately, but could only remember 2/3 words in 1 minute and 3 minutes. She was able to remember presidents Trump and Obama, but needed hints to remember through Rusty. She could not remember presidents prior to Rusty. Her mathematical skills were impaired. Her visuospatial function was also impaired. SPEECH: She had mild dysarthria. LANGUAGE: She had anomia for low-frequency words. CRANIAL NERVE EXAMINATION: II: The visual raman were intact to confrontation testing. III, IV & : The external ocular movements were full and the pupils 3 mm in diameter, equal, round, regular, and reactive to light. V: She had normal facial sensations, and the temporales, masseters, and pterygoids functioned normally. VII: She had a mild left seventh central facial paresis. VIII: She was able to hear well bilaterally and had no nystagmus. IX: The palate moved symmetrically on phonation. X: She had no hoarseness of voice. XI: The sternocleidomastoids and trapezii functioned normally. XII: The tongue was in the midline without any fasciculations or atrophy. MOTOR SYSTEM: The tone was normal in all four extremities. Examination of muscle mass revealed no focal wasting. Examination of power revealed G 5/5 power except for G 4++/5 power in the left finger extensors and iliopsoas. It should be noted that on the left side, she exhibited significant give-way weakness making it quite difficult to determine how much of the weakness was true and how much of it was not. SENSORY EXAMINATION: She had mild alteration to pinprick and light touch over entire left body. REFLEXES: 1+ on the right and 1++ on the left at the biceps, triceps, brachioradialis, and knees, 0 at both ankles. The plantar responses were flexor bilaterally. COORDINATION: She performed well on [id number] and [id number] testing. She was unable to perform Romberg test. STANCE: She stood up with support. GAIT: She walked with support with a mildly left paretic gait. Impression/Recommendations Diagnostic Impression 1. Ms. Alfie Ferrell is a 56-year-old, right-handed, black lady, who does have a past history of thyroid problems for which she has had surgery, disability with a chronic pain syndrome since age 34, hypertension, diabetes mellitus, dyslipidemia, and for the last few months, frequent falls. 2. She feels much better today. She feels stronger. The left side is significantly stronger. The altered sensation on the left side is also better. She denies any new neurologic symptoms. 3. On neurological examination, at this time, she does have problems with memory , higher cognitive function, and visuospatial function. She also has a mild left seventh central facial paresis, left hemiparesis with mild give-way weakness, a left hemisensory deficit, globally diminished deep tendon reflexes that are slightly brisker on the left side than on the right, and a left paretic gait. 4. Laboratory data obtained thus far have revealed a relatively normal CBC. Chemistry panel with glucose elevated to 111 and a proBNP elevated to 142. A TSH that is normal. The urine toxicology screen is benign and so is the urinalysis. 5. The CT scan of the brain revealed a possible lacunar infarct in the right internal capsule of indeterminate age - however this was not seen on the MRI scan and is most probably an artifact. 6. The MRI of the brain performed on 08/23/17 revealed: - No acute intracranial bleed, mass effect, or infarct. - No abnormality seen to correspond to question abnormality of the right internal capsule described on the recent CT scan. That finding was presumably artifactual. - Tiny old lacunar infarct in the inferior left lentiform nucleus. 7. The Carotid duplex revealed 30% left ICA stenosis and a patent right ICA. 8. The patient's history and neurological examination are most compatible with right brain dysfunction with the left hemiparesis causing significant left-sided weakness, significant altered sensation over the left body and in turn, the frequent falls. However no corresponding stroke is seen on an MRI. Recommendations 1. Continue present management. 2. The patient was instructed to stop smoking immediately. 3. Strict risk factor modification should be implemented with the patient's blood pressure goal being < 120/80, LDL goal being <70, hemoglobin A1c goal at < 6%. 4. Aspirin 81 mg daily. 5. She should be started on a course of physical and occupational therapy to rehabilitate her. 6. She can be discharged from a neurologic point of view. Homa Paul M.D., M.S.P.HOMA CALDERON Aug 23, 2017 21:06
[2017-08-23] MEDS: Sodium Chloride 500ML 550 ML IV SCH (21:43)
[2017-08-24] VITALS: BP 119/76
--- NOTE | 2017-08-24 02:00 | Consultation ---
DATE OF CONSULTATION: 08/23/2017 CARDIOLOGY CONSULTATION CONSULTING PHYSICIAN: Manny Gilman M.D. REFERRING PHYSICIAN: Mervin Hanks M.D. REASON FOR REFERRAL: Syncope. HISTORY OF PRESENT ILLNESS: This is an elderly female, who has a history of hypertension for a number of years, has been on Norvasc and her primary doctor started on some hydrochlorothiazide. She has not been really taking on a regular basis three to four times a day only, but more recently she has been taking it three to four times a week. She got up to walk, took a few steps, fell, and found herself on the floor and heard some people calling her and she got up eventually. She has had a prior episode of finding herself on the floor on the street when she was trying to cross the street walking about two months ago. She never sought medical attention. She has had some pain that she has difficulty in describing her chest, has had shortness of breath. She states she is not able to lay down flat, but she uses one pillow at home. There is no PND apparently. She does have dizziness and lightheadedness on standing. She has palpitations. She has shortness of breath on walking. PAST MEDICAL HISTORY: Positive for high blood pressure that is difficult to control more recently since the addition of the new medication. She has had blood pressures on medication in the 110s that she has not had for eight years she indicates. She is not sure about high cholesterol. She has never had a heart attack, although she has been told that she may have had previously. No history of cancer. No stroke previously. No hepatitis or tuberculosis. No asthma or emphysema. No ulcers. She does have some kind of some thyroid problems. She has a history of hyperparathyroidism. No blood clots. No HIV or AIDS. No other problems. Past medical history also should include history of chest pain, for which she underwent a myocardial perfusion imaging here at [facility] two years ago. She also has a history of chronic pain after falling, for which she is on numerous number of pain medications at home. ALLERGIES: She is allergic to tramadol. SOCIAL HISTORY: She does smoke half a pack a day. She used to use drugs, but quit that a number of years ago. She does drink alcoholic beverages. She used to work in a clerical business. REVIEW OF SYSTEMS: GASTROINTESTINAL: She did have some nausea and diarrhea on the day she came into the hospital. GENITOURINARY: She denies. PULMONARY: She denies. CONSTITUTIONAL: She has fevers, chills, and night sweats. NEUROLOGICAL: Numbness and tingling sensation and weakness in her left side. PHYSICAL EXAMINATION: GENERAL: Shows to be obese female, in no respiratory distress. VITAL SIGNS: The patient's blood pressure was 92/56 earlier today. When she presented, she had blood pressure into 120/87. Her telemetry data is fairly unremarkable with sinus rhythm. NECK: Supple. No jugular venous distention. No abdominojugular reflux noted. LUNGS: Appear to be clear to auscultation and percussion. CARDIAC: S1 is normal. S2 is normal. Regular rate and rhythm. No heaves, thrills, or gallops noted. ABDOMEN: Soft and nontender. Positive bowel sounds. EXTREMITIES: There is no clubbing, cyanosis, nor is there any edema. LABORATORY AND DIAGNOSTIC DATA: Electrocardiogram showed normal sinus rhythm, normal QRS axis, no ST or T-wave abnormalities. Her blood tests, white count 6, hemoglobin 12.8, and platelet count of 395. Sodium is 147, potassium 3.4, chloride 105, bicarbonate 26, BUN of 8, creatinine 0.8, and glucose of 91. A1c of 5.3. Calcium is 9.3. Total cholesterol 237 with a LDL of 150 and HDL of 55. Vitamin B12 of 750, folic acid 16.4, and troponin is negative on one occasion and coags, INR 1.0 and a PTT of 27. Urinalysis is fairly unremarkable. Toxicology screen negative at the time of this admission. She has had CT scan of her head that was performed showed possible age-related right internal capsular lacunar infarct, negative for acute intracranial bleed. An echocardiogram was performed showing normal left ventricular systolic function, moderate aortic regurgitation, mild diastolic relaxation abnormality, PA pressure of 45, normal wall motion, and she had an MRI of her brain negative for acute bleed, mass effects, or infarcts. No evidence of abnormalities in the internal capsule was noted. ASSESSMENT AND PLAN: 1. Syncope. 2. Recent orthostatic symptoms. 3. Hypertension with recent use of diuretics with lower than usual blood pressure. 4. History of obesity. 5. Chronic pain syndrome, status post fall. 6. History of fall and injury. This patient was seen in cardiac consultation. The patient's symptoms are likely suggestive of orthostatic symptoms from the diuretic that she was recently prescribed and has been using more regularly with lower than usual blood pressure readings. I suspect that she had orthostatic-induced syncope and hypotension. She has had some low blood pressure readings here. She has had elevated blood pressure 200s usually prior to addition of the hydrochlorothiazide, but she has not been taking the medication on a regular basis until recently, although still not on a daily basis as she only takes it three or four times a week. Nevertheless that may have induced orthostatic symptoms of volume depletion, has had caused her to have syncope. Orthostatic vitals will be ordered. She has had an MRI that was negative. I doubt any cardiac injury. Echocardiogram is normal. She will have a set of cardiac enzymes to be repeated for tomorrow morning. Her EKG is unremarkable. She did have a perfusion imaging in 2016 here that was reported as normal LV function, no evidence of ischemia. Further recommendations as become necessary. My hope is if the patient is not orthostatic, that she should be able to go home soon. Her usual medications should be continued, however, I would refrain from use of hydrochlorothiazide in her in the future, may be addition of an ARB or ROSIO inhibitors if that would be needed for blood pressure control. Manny Gilman M.D. DR: Yuni JOB#: [id number] CC:
[2017-08-24] MEDS: Norco 5mg/325mg tab ORAL PRN ×4 (03:05→20:23)
[2017-08-24 04:00] VITALS: BP 128/62
[2017-08-24 08:00] VITALS: BP 119/63
[2017-08-24] MEDS: Sodium Chloride 500ML 550 ML IV SCH ×2 (08:19→20:24)
[2017-08-24] MEDS: Aspirin Baby 81mg ORAL SCH (08:21)
[2017-08-24] MEDS: Meclizine 25mg tab ORAL SCH ×3 (08:22→20:23)
[2017-08-24] MEDS: Heparin 5000 units/ml inj SUBQ SCH ×2 (08:23→20:27)
[2017-08-24 12:00] VITALS: BP 120/68
--- NOTE | 2017-08-24 12:43 | Pulmonology Progress Note ---
Assessment/Plan Problems: (1) Acute CVA (cerebrovascular accident) (2) Syncope (3) HTN (hypertension) (4) Osteoarthritis (5) Left-sided weakness Assessment/Plan Neuro evaluation appreciated echo reviewed doppler of carotid artery Monitor BP dvt prophylaxis symptomatic treatment optimize medical treatment dc planning to rehab facility Subjective ROS Limited/Unobtainable: No Interval Events: doing PT Allergies: Coded Allergies: TRAMADOL (Verified Allergy, Unknown, 04/08/15) Objective Last 24 Hour Vital Signs Date Time Temp Pulse Resp B/P (MAP) Pulse Ox O2 Delivery O2 Flow Rate FiO2 08/24/17 09:00 64 101 79 08/24/17 08:22 64 119/63 08/24/17 08:00 98.1 64 20 119/63 99 98.1 08/24/17 08:00 62 08/24/17 04:04 98.2 08/24/17 04:00 56 08/24/17 04:00 97.9 59 18 128/62 98 97.9 08/24/17 03:05 98.2 08/24/17 00:00 57 08/24/17 00:00 98.2 57 17 119/76 98 Room Air 98.2 08/23/17 21:46 98.4 08/23/17 20:00 98.4 61 18 126/75 99 Room Air 98.4 08/23/17 20:00 78 08/23/17 17:32 61 122/63 08/23/17 16:00 98.2 68 18 122/63 97 98.2 08/23/17 16:00 63 Intake and Output 08/23/17 08/24/17 19:00 07:00 Intake Total 480 ml 240 ml Output Total 550 ml Balance -70 ml 240 ml Intake Oral 480 ml 240 ml Output Urine Total 550 ml # Voids 1 Objective General Appearance: WD/WN Lines, tubes and drains: peripheral, central line HEENT: normocephalic, anicteric Neck: non-tender Respiratory/Chest: chest wall non-tender, lungs clear Abdomen: normal bowel sounds, non tender Extremities: normal range of motion Skin Exam: normal pigmentation Neurologic: motor weakness, other - left sided weaknes Laboratory Tests 08/24/17 08:35: Troponin I 0.000 Current Medications Medications (Trade) Dose Ordered Sig/Henri Route PRN Reason Start Time Stop Time Status Last Admin Dose Admin Acetaminophen (Tylenol) 650 mg Q4H PRN ORAL fever 08/22/17 15:00 09/21/17 14:59 Acetaminophen/ Hydrocodone Bitart ([place] 5/325) 1 tab Q4H PRN ORAL Moderate Pain (Pain Scale 4-6) 08/22/17 18:00 08/29/17 17:59 08/24/17 08:04 Al Hydroxide/Mg Hydroxide (Mylanta II) 30 ml Q6H PRN ORAL dyspepsia 08/22/17 15:00 09/21/17 14:59 Albuterol/ Ipratropium (Albuterol/ Ipratropium) 3 ml Q4H PRN HHN Shortness of Breath 08/22/17 15:00 08/27/17 14:59 Amlodipine Besylate (Norvasc) 10 mg TWICE A DAY ORAL 08/22/17 18:00 09/21/17 17:59 08/24/17 08:22 Aspirin (ASA) 81 mg DAILY ORAL 08/23/17 09:00 09/22/17 08:59 08/24/17 08:21 Clonidine HCl (Catapres Tab) 0.1 mg Q4H PRN ORAL SBP > 150 08/22/17 15:00 09/21/17 14:59 Dextrose (Dextrose 50%) 25 ml STAT PRN IV BLOOD SUGAR BTWN 60-69 mg/dL 08/22/17 15:30 09/21/17 15:29 Dextrose (Dextrose 50%) 50 ml STAT PRN IV BLOOD SUGAR < 60 mg/dL 08/22/17 15:30 09/21/17 14:59 Gabapentin (Neurontin) 100 mg THREE TIMES A DAY ORAL 08/22/17 18:00 09/21/17 17:59 08/24/17 08:21 Heparin Sodium (Porcine) (Heparin 5000 units/ml) 5,000 units EVERY 12 HOURS SUBQ 08/22/17 21:00 09/21/17 20:59 08/24/17 08:23 Lorazepam (Ativan 2mg/ml 1ml) 0.5 mg Q4H PRN IV For Anxiety 08/22/17 15:00 08/29/17 14:59 08/23/17 09:59 Meclizine HCl (Antivert) 25 mg THREE TIMES A DAY ORAL 08/22/17 18:00 09/21/17 17:59 08/24/17 08:22 Nitroglycerin (Ntg) 0.4 mg Q5M X 3 DOSES PRN SL Prn Chest Pain 08/22/17 15:00 09/21/17 14:59 Ondansetron HCl (Zofran) 4 mg Q6H PRN IVP Nausea & Vomiting 08/22/17 15:00 09/21/17 14:59 Polyethylene Glycol (Miralax) 17 gm HSPRN PRN ORAL Constipation 08/22/17 15:00 09/21/17 14:59 Sodium Chloride 550 ml @ 50 mls/hr Q11H IV 08/23/17 21:00 09/22/17 20:59 08/24/17 08:19 Temazepam (Restoril) 15 mg HSPRN PRN ORAL Insomnia 08/22/17 15:00 08/29/17 14:59 08/23/17 20:44 Mervin Hanks MD Aug 24, 2017 12:43
[2017-08-24 16:00] VITALS: BP 144/97
[2017-08-24] MEDS ORDERED: Nitroglycerin Subl 0.4mg tab SL PRN (19:00)
[2017-08-24] MEDS ORDERED: LORazepam Inj 2mg/ml 1ml IV PRN (19:00)
[2017-08-24] MEDS ORDERED: Albuterol/Ipratropium 3ml neb HHN PRN (19:00)
[2017-08-24] MEDS ORDERED: Mylanta II UD 30ml ORAL PRN (19:00)
[2017-08-24] MEDS ORDERED: Miralax 17gm pkt ORAL PRN (19:00)
[2017-08-24 20:00] VITALS: BP 124/70
--- NOTE | 2017-08-24 20:01 | Neurology Progress Note ---
Interim History Interim History Interim History Ms. Ferrell continues to feel much better. She feels stronger. The left side is significantly stronger. The altered sensation on the left side is also better. She did some walking today and was steadier on her feet. She denies any new neurologic symptoms. Review of Systems Neuro Review of Systems Benign. Objective Physical Exam Last Vital Signs Date Time Temp Pulse Resp B/P (MAP) Pulse Ox O2 Delivery O2 Flow Rate FiO2 08/24/17 16:00 80 08/24/17 16:00 97.9 21 144/97 96 Room Air 97.9 Laboratory Tests Test 08/24/17 08:35 Troponin I 0.000 ng/mL (0.000-0.056) Neurologic Exam Objective PHYSICAL EXAMINATION: GENERAL: She is a well-developed, well-nourished black lady, lying in bed, in no acute distress. HEAD: Normocephalic and atraumatic. EENT: Examination benign. NECK: No neck rigidity was observed. NEUROLOGIC EXAMINATION: MENTAL STATUS EXAMINATION: She was awake and alert. She was oriented to person, place, and time. She was able to recall 3/3 words immediately, but could only remember 2/3 words in 1 minute and 3 minutes. She was able to remember presidents Trump and Obama, but needed hints to remember through Rusty. She could not remember presidents prior to Rusty. Her mathematical skills were impaired. Her visuospatial function was also impaired. SPEECH: She had mild dysarthria. LANGUAGE: She had anomia for low-frequency words. CRANIAL NERVE EXAMINATION: II: The visual raman were intact to confrontation testing. III, IV & : The external ocular movements were full and the pupils 3 mm in diameter, equal, round, regular, and reactive to light. V: She had normal facial sensations, and the temporales, masseters, and pterygoids functioned normally. VII: She had a mild left seventh central facial paresis. VIII: She was able to hear well bilaterally and had no nystagmus. IX: The palate moved symmetrically on phonation. X: She had no hoarseness of voice. XI: The sternocleidomastoids and trapezii functioned normally. XII: The tongue was in the midline without any fasciculations or atrophy. MOTOR SYSTEM: The tone was normal in all four extremities. Examination of muscle mass revealed no focal wasting. Examination of power revealed G 5/5 power except for G 4++/5 power in the left finger extensors and iliopsoas. It should be noted that on the left side, she exhibited significant give-way weakness making it quite difficult to determine how much of the weakness was true and how much of it was not. SENSORY EXAMINATION: She had mild alteration to pinprick and light touch over entire left body. REFLEXES: 1+ on the right and 1++ on the left at the biceps, triceps, brachioradialis, and knees, 0 at both ankles. The plantar responses were flexor bilaterally. COORDINATION: She performed well on [id number] and [id number] testing. She was unable to perform Romberg test. STANCE: She stood up with support. GAIT: She walked with support with a mildly left paretic gait. Impression/Recommendations Diagnostic Impression 1. Ms. Alfie Ferrell is a 56-year-old, right-handed, black lady, who does have a past history of thyroid problems for which she has had surgery, disability with a chronic pain syndrome since age 34, hypertension, diabetes mellitus, dyslipidemia, and for the last few months, frequent falls. 2. She feels much better. She is stronger. The left side is significantly stronger. The altered sensation on the left side is also better. She denies any new neurologic symptoms. 3. On neurological examination, at this time, she does have problems with memory , higher cognitive function, and visuospatial function. She also has a mild left seventh central facial paresis, left hemiparesis with mild give-way weakness, a left hemisensory deficit, globally diminished deep tendon reflexes that are slightly brisker on the left side than on the right, and a left paretic gait. 4. Laboratory data obtained thus far have revealed a relatively normal CBC. Chemistry panel with glucose elevated to 111 and a proBNP elevated to 142. A TSH that is normal. The urine toxicology screen is benign and so is the urinalysis. 5. The CT scan of the brain revealed a possible lacunar infarct in the right internal capsule of indeterminate age - however this was not seen on the MRI scan and is most probably an artifact. 6. The MRI of the brain performed on 08/23/17 revealed: - No acute intracranial bleed, mass effect, or infarct. - No abnormality seen to correspond to question abnormality of the right internal capsule described on the recent CT scan. That finding was presumably artifactual. - Tiny old lacunar infarct in the inferior left lentiform nucleus. 7. The Carotid duplex revealed 30% left ICA stenosis and a patent right ICA. 8. The patient's history and neurological examination are most compatible with right brain dysfunction with the left hemiparesis causing significant left- sided weakness, significant altered sensation over the left body and in turn, the frequent falls. However no corresponding stroke is seen on an MRI. 9. Her neurologic function continues to improve. Recommendations 1. Continue present management. 2. The patient was instructed to stop smoking immediately. 3. Strict risk factor modification should be implemented with the patient's blood pressure goal being < 120/80, LDL goal being <70, hemoglobin A1c goal at < 6%. 4. Aspirin 81 mg daily. 5. Physical and occupational therapy to rehabilitate her. 6. She can be discharged from a neurologic point of view. Homa Paul M.D., M.S.P.H. HOMA PAUL Aug 24, 2017 20:01
--- NOTE | 2017-08-24 21:18 | Cardiology Report ---
APPROVED REPORT EKG Measurement Heart [id number] Normal sinus rhythm Normal ECG
[2017-08-25] VITALS: BP 121/72
--- NOTE | 2017-08-25 00:05 | Diagnostic Imaging Report ---
APPROVED REPORT CPT Code: 16811 Vascular Symptoms Comments: AMS Doppler Spectral Velocity Analysis RightLeft RIGHT SIDE: CCA - Imaging reveals no significant plaque within the extracranial carotid arteries. The Doppler spectral flow analysis is within normal limits throughout the extracranial carotid arteries. VERTEBRAL - The vertebral artery is within normal limits. LEFT SIDE: ECA - Imaging reveals no significant plaque in the external carotid artery. arteries. The Doppler signal indicates the degree of stenosis is minimal (30%) in the common carotid artery, and (30%) in the internal carotid artery. VERTEBRAL - The vertebral artery is patent, without evidence of stenosis or steal.
[2017-08-25] MEDS: Norco 5mg/325mg tab ORAL PRN ×3 (00:33→12:53)
[2017-08-25 04:00] VITALS: BP 132/68
[2017-08-25] MEDS: Sodium Chloride 500ML 550 ML IV SCH (06:08)
[2017-08-25] MEDS ORDERED: LORazepam Inj 2mg/ml 1ml IM PRN (07:00)
[2017-08-25 08:39] VITALS: BP 118/65
[2017-08-25] MEDS ORDERED: Aspirin Baby 81mg ORAL SCH (09:00)
[2017-08-25] MEDS: Meclizine 25mg tab ORAL SCH ×2 (10:40→13:59)
[2017-08-25] MEDS: Heparin 5000 units/ml inj SUBQ SCH (10:43)
[2017-08-25 12:00] VITALS: BP 131/88
--- NOTE | 2017-08-25 12:05 | Neurology Progress Note ---
Interim History Interim History Interim History Ms. Ferrell continues to feel well. Plans are to go home today. She feels stronger. The left side is significantly stronger. The altered sensation on the left side is also better. She did some walking today and was steadier on her feet. She denies any new neurologic symptoms. Review of Systems Neuro Review of Systems Benign. Objective Physical Exam Last Vital Signs Date Time Temp Pulse Resp B/P (MAP) Pulse Ox O2 Delivery O2 Flow Rate FiO2 08/25/17 10:41 62 118/65 08/25/17 08:49 97.4 08/25/17 08:39 16 97 Room Air Neurologic Exam Objective PHYSICAL EXAMINATION: GENERAL: She is a well-developed, well-nourished black lady, lying in bed, in no acute distress. HEAD: Normocephalic and atraumatic. EENT: Examination benign. NECK: No neck rigidity was observed. NEUROLOGIC EXAMINATION: MENTAL STATUS EXAMINATION: She was awake and alert. She was oriented to person, place, and time. She was able to recall 3/3 words immediately, and in 1 minute and 3 minutes. She was able to remember presidents Trump and Obama, but needed hints to remember through Rusty. She could not remember presidents prior to Rusty. Her mathematical skills were impaired. Her visuospatial function was also impaired. SPEECH: She had mild dysarthria. LANGUAGE: She had anomia for low-frequency words. CRANIAL NERVE EXAMINATION: II: The visual raman were intact to confrontation testing. III, IV & : The external ocular movements were full and the pupils 3 mm in diameter, equal, round, regular, and reactive to light. V: She had normal facial sensations, and the temporales, masseters, and pterygoids functioned normally. VII: She had a mild left seventh central facial paresis. VIII: She was able to hear well bilaterally and had no nystagmus. IX: The palate moved symmetrically on phonation. X: She had no hoarseness of voice. XI: The sternocleidomastoids and trapezii functioned normally. XII: The tongue was in the midline without any fasciculations or atrophy. MOTOR SYSTEM: The tone was normal in all four extremities. Examination of muscle mass revealed no focal wasting. Examination of power revealed G 5/5 power except for G 4++/5 power in the left finger extensors and iliopsoas. It should be noted that on the left side, she exhibited mild give-way weakness. SENSORY EXAMINATION: She had mild alteration to pinprick and light touch over entire left body. REFLEXES: 1+ on the right and 1++ on the left at the biceps, triceps, brachioradialis, and knees, 0 at both ankles. The plantar responses were flexor bilaterally. COORDINATION: She performed well on [id number] and [id number] testing. She was unable to perform Romberg test. STANCE: She stood up with support. GAIT: She walked with support with a mildly left paretic gait. Impression/Recommendations Diagnostic Impression 1. Ms. Alfie Ferrell is a 56-year-old, right-handed, black lady, who does have a past history of thyroid problems for which she has had surgery, disability with a chronic pain syndrome since age 34, hypertension, diabetes mellitus, dyslipidemia, and for the last few months, frequent falls. 2. She continues to feel well. Plans are to go home today. She feels stronger. The left side is significantly stronger. The altered sensation on the left side is also better. She did some walking today and was steadier on her feet. She denies any new neurologic symptoms. 3. On neurological examination, at this time, she does have problems with memory , higher cognitive function, and visuospatial function. She also has a mild left seventh central facial paresis, left hemiparesis with mild give-way weakness, a left hemisensory deficit, globally diminished deep tendon reflexes that are slightly brisker on the left side than on the right, and a left paretic gait. 4. Laboratory data obtained thus far have revealed a relatively normal CBC. Chemistry panel with glucose elevated to 111 and a proBNP elevated to 142. A TSH that is normal. The urine toxicology screen is benign and so is the urinalysis. 5. The CT scan of the brain revealed a possible lacunar infarct in the right internal capsule of indeterminate age - however this was not seen on the MRI scan and is most probably an artifact. 6. The MRI of the brain performed on 08/23/17 revealed: - No acute intracranial bleed, mass effect, or infarct. - No abnormality seen to correspond to question abnormality of the right internal capsule described on the recent CT scan. That finding was presumably artifactual. - Tiny old lacunar infarct in the inferior left lentiform nucleus. 7. The Carotid duplex revealed 30% left ICA stenosis and a patent right ICA. 8. The patient's history and neurological examination are most compatible with right brain dysfunction with the left hemiparesis causing significant left- sided weakness, significant altered sensation over the left body and in turn, the frequent falls. However no corresponding stroke is seen on an MRI. 9. Her neurologic function continues to improve. Recommendations 1. Continue present management. 2. The patient was instructed to stop smoking immediately. 3. Strict risk factor modification should be implemented with the patient's blood pressure goal being < 120/80, LDL goal being <70, hemoglobin A1c goal at < 6%. 4. Aspirin 81 mg daily. 5. Physical and occupational therapy to rehabilitate her. 6. She can be discharged from a neurologic point of view. Homa Paul M.D., M.S.P.Veronique. HOMA PAUL Aug 25, 2017 12:05
[2017-08-25] MEDS ORDERED: LORazepam 1mg tab ORAL ONE (14:15)
[2017-08-25] MEDS ORDERED: LORazepam 1mg tab ORAL SCH (14:15)
--- NOTE | 2017-08-25 14:21 | Pulmonology Progress Note ---
Assessment/Plan Problems: (1) Acute CVA (cerebrovascular accident) (2) Syncope (3) HTN (hypertension) (4) Osteoarthritis (5) Left-sided weakness Assessment/Plan Neuro evaluation appreciated echo reviewed Monitor BP dvt prophylaxis symptomatic treatment optimize medical treatment dc home Subjective ROS Limited/Unobtainable: No Constitutional: Reports: no symptoms HEENT: Repors: no symptoms Respiratory: Reports: no symptoms Allergies: Coded Allergies: TRAMADOL (Verified Allergy, Unknown, 04/08/15) Objective Last 24 Hour Vital Signs Date Time Temp Pulse Resp B/P (MAP) Pulse Ox O2 Delivery O2 Flow Rate FiO2 08/25/17 13:52 97.4 08/25/17 12:53 97.4 08/25/17 12:00 97.9 61 17 131/88 98 97.9 08/25/17 10:41 62 118/65 08/25/17 08:39 97.4 62 16 118/65 97 Room Air 97.4 08/25/17 07:50 97.7 08/25/17 06:49 69 18 Room Air 21 08/25/17 04:00 97.7 74 18 132/68 98 Room Air 97.7 08/25/17 00:00 97.7 71 18 121/72 100 Room Air 97.7 08/24/17 21:00 65 18 100 Room Air 21 08/24/17 20:51 66 18 Room Air 21 08/24/17 20:51 66 18 97 Room Air 21 08/24/17 20:24 80 144/97 08/24/17 20:00 99.0 61 18 124/70 98 Room Air 99.0 08/24/17 16:00 80 08/24/17 16:00 97.9 100 21 144/97 96 Room Air 97.9 Intake and Output 08/24/17 08/25/17 19:00 07:00 Intake Total 340 ml 250 ml Balance 340 ml 250 ml Intake Oral 340 ml 250 ml # Voids 1 3 Objective General Appearance: WD/WN Lines, tubes and drains: peripheral, central line HEENT: normocephalic, anicteric Neck: non-tender Respiratory/Chest: chest wall non-tender, lungs clear Abdomen: normal bowel sounds, non tender Extremities: normal range of motion Skin Exam: normal pigmentation Neurologic: motor weakness, other - left sided weaknes Current Medications Medications (Trade) Dose Ordered Sig/Henri Route PRN Reason Start Time Stop Time Status Last Admin Dose Admin Acetaminophen (Tylenol) 650 mg Q4H PRN ORAL fever 08/24/17 19:00 09/21/17 14:59 Acetaminophen/ Hydrocodone Bitart ([place] 5/325) 1 tab Q4H PRN ORAL Moderate Pain (Pain Scale 4-6) 08/24/17 19:15 08/29/17 19:14 08/25/17 12:53 Al Hydroxide/Mg Hydroxide (Mylanta II) 30 ml Q6H PRN ORAL dyspepsia 08/24/17 19:00 09/21/17 18:59 Albuterol/ Ipratropium (Albuterol/ Ipratropium) 3 ml Q4H PRN HHN Shortness of Breath 08/24/17 19:00 08/27/17 14:59 08/24/17 20:51 Amlodipine Besylate (Norvasc) 10 mg TWICE A DAY ORAL 08/24/17 19:30 09/23/17 19:29 08/25/17 10:41 Aspirin (ASA) 81 mg DAILY ORAL 08/25/17 09:00 09/22/17 08:59 08/25/17 10:40 Clonidine HCl (Catapres Tab) 0.1 mg Q4H PRN ORAL SBP > 150 08/24/17 19:00 09/21/17 14:59 Dextrose (Dextrose 50%) 25 ml STAT PRN IV BLOOD SUGAR BTWN 60-69 mg/dL 08/24/17 19:00 09/23/17 18:59 Dextrose (Dextrose 50%) 50 ml STAT PRN IV BLOOD SUGAR < 60 mg/dL 08/24/17 19:00 09/23/17 18:59 Gabapentin (Neurontin) 100 mg THREE TIMES A DAY ORAL 08/24/17 19:30 09/23/17 19:29 08/25/17 13:59 Heparin Sodium (Porcine) (Heparin 5000 units/ml) 5,000 units EVERY 12 HOURS SUBQ 08/24/17 21:00 09/21/17 20:59 08/25/17 10:43 Lorazepam (Ativan 2mg/ml 1ml) 0.5 mg Q4H PRN IM For Anxiety 08/25/17 07:00 09/24/17 11:00 Lorazepam (Ativan) 1 mg ONCE ORAL 08/25/17 14:15 08/25/17 15:16 Lorazepam (Ativan) 1 mg ONCE ONCE ORAL 08/25/17 14:15 08/25/17 14:16 UNV Meclizine HCl (Antivert) 25 mg THREE TIMES A DAY ORAL 08/24/17 19:30 09/23/17 19:29 08/25/17 13:59 Nitroglycerin (Ntg) 0.4 mg Q5M X 3 DOSES PRN SL Prn Chest Pain 08/24/17 19:00 09/21/17 18:59 Ondansetron HCl (Zofran) 4 mg Q6H PRN IVP Nausea & Vomiting 08/24/17 19:00 09/21/17 18:59 Polyethylene Glycol (Miralax) 17 gm HSPRN PRN ORAL Constipation 08/24/17 19:00 09/23/17 18:59 Sodium Chloride 550 ml @ 50 mls/hr Q11H IV 08/24/17 19:30 09/22/17 19:29 08/24/17 20:24 Temazepam (Restoril) 15 mg HSPRN PRN ORAL Insomnia 08/24/17 19:00 08/31/17 18:59 08/24/17 21:56 Mervin Hanks MD Aug 25, 2017 14:21
--- NOTE | 2017-08-25 18:43 | Diagnostic Imaging Report ---
Indication: Pain Technique: XRAY Hip Routine 2v+ L Comparison: 02/26/2016 Findings: There is no evidence of acute fracture or dislocation. Symphysis pubis and left sacroiliac joint within normal limits. There is probable calcified fibroids. Impression: No evidence of acute fracture or dislocation. Probable calcified uterine fibroids.
--- NOTE | 2017-08-29 13:24 | Discharge Summary ---
Discharge Summary Hospital Course Date of Admission Aug 22, 2017 at 13:46 Date of Discharge Aug 25, 2017 at 16:05 Admitting Diagnosis LEFT SIDE WEAKNESS, SYNCOPE HPI Alfie Ferrell is a 56 year old female who was admitted on Aug 22, 2017 at 13: 46 for Left Side Weakness,Syncope Procedures [id number] Discharge Discharge Disposition Patient was discharged to Home (01) Whitney Flores NP Aug 29, 2017 13:24
--- NOTE | 2017-08-29 19:15 | Discharge Summary 2 SIG ---
DATE OF ADMISSION: 08/22/2017 DATE OF DISCHARGE: 08/25/2017 CONSULTANTS: 1. Jairon Paul M.D. 2. Mervin Hanks M.D. 3. Manny Gilman M.D. BRIEF HOSPITAL COURSE: The patient is a 56-year-old female with history of hypertension, CVA, and status post thyroidectomy, presented to the ER complaining of left-sided increased pain with weakness. She reported multiple falls recently and she complained of passing out. She was having moderate headache. On evaluation at ED, CT of the head showed possible left internal capsule CVA. She was given aspirin. Blood work was stable. Troponin was negative. Urine toxicology was negative. She was admitted to telemetry for evaluation of possible CVA. She was placed on neuro checks and neuro evaluation. She was seen by Dr. Paul. Neurological exam showed problems with memory, higher cognitive function, and visuospatial function. She also has some mild left seventh cranial facial paralysis, left hemiparesis with significant give-way weakness, left guille-sensory deficit, and globally diminished deep tendon reflexes with brisker on the left than on the right. She had a left paretic gait. She was given aspirin daily. Carotid ultrasound showed no significant plaques within the external carotid arteries. Vertebral artery was within normal limits with no evidence of stenosis or steal. Brain MRI was negative for acute intracranial bleed, mass effect, or infarct. There was a tiny old lacunar infarct in the anterior left lentiform nucleus. She was instructed to stop smoking. She also had cardiac evaluation. EKG showed normal sinus rhythm with normal QRS axis. No ST to T-wave abnormalities. The patient's syncope was assessed to be likely suggestive of orthostatic symptoms from the diuretic, suspect orthostatic-induced syncope with hypotension. Echocardiogram done showed ejection fraction of 65% with moderate left ventricular hypertrophy, moderate aortic regurgitation, trace mitral regurgitation, and moderate pulmonary hypertension. She was given symptomatic treatment. She was given PT and OT. She was eventually discharged home. FINAL DIAGNOSES: 1. Possible acute cerebrovascular accident. 2. Syncope, possibly secondary to orthostasis. 3. Hypertension. 4. Osteoarthritis. 5. Left-sided weakness. 6. Right brain dysfunction with left hemiparesis causing significant left-sided weakness, significant altered sensation, and frequent falls. 7. Off diuretics with lower than usual blood pressure. 8. Fall and injury. 9. Chronic pain. DISCHARGE MEDICATIONS: Follow up with PMD in a week. Mervin Hanks M.D. I have been assigned to dictate discharge summary on this account and I was not involved in the patient's management. Whitney Flores N.P. DR: WILLIAM JOB#: [id number] CC:
== END 2017-08-25 16:05 | disposition home or self-care (01) | DRG 45 ==
LOC: EMR 12:45 → 2E 13:46 → EDBEDREQ 14:20 → SDSOVERFLO 17:10 → 2E 17:11 → SDSOVERFLO 17:12 → 2E 17:13 → 4E 08-24 17:32
DX: I63.9 Cerebral infarction, unspecified (principal); G81.94 Hemiplegia, unspecified affecting left nondominant side; I27.20 Pulmonary hypertension, unspecified; I10 Essential (primary) hypertension; I95.1 Orthostatic hypotension; R29.6 Repeated falls; Z88.6 Allergy status to analgesic agent; M19.90 Unspecified osteoarthritis, unspecified site; E11.9 Type 2 diabetes mellitus without complications; E78.5 Hyperlipidemia, unspecified; F17.200 Nicotine dependence, unspecified, uncomplicated; G51.0 Bell's palsy; I35.1 Nonrheumatic aortic (valve) insufficiency; G89.29 Other chronic pain; R51 Headache; I51.7 Cardiomegaly
CPT/HCPCS: 36415; 70450; 70551; 73502; 80053; 80061; 80307; 80329; 81001; 82306; 82607; 82746; 82962; 83036; 83880; 84443; 84484; 85025; 85610; 85651; 85730; 86592; 93005; 93306; 93880; 94640; 94664; 99285; J7620

== ENCOUNTER 2017-09-25 09:13 | Emergency (ER) | payer OTHER ==
--- NOTE | 2017-09-25 10:14 | Emergency Room Report ---
History of Present Illness General Chief Complaint: To Be Triaged Present Illness Allergies: Coded Allergies: TRAMADOL (Verified Allergy, Unknown, 04/08/15) Nursing Documentation-PMH Hx Hypertension: Yes Hx Pacemaker: No Hx Asthma: No Hx COPD: Yes Hx Diabetes: Yes - BORDERLINE Hx Cancer: No Hx Gastrointestinal Problems: Yes Hx Neurological Problems: Yes Hx Cerebrovascular Accident: No Hx Transient Ischemic Attacks: No Hx Dementia: No Hx Alzheimer's Disease: No Hx Parkinson's Disease: No Hx Meningitis: No Hx Encephalitis: No Hx Seizures: No Hx Epilepsy: No Hx Multiple Sclerosis: No Hx Cerebral Palsy: No Hx Amyotrophic Lat Sclerosis: No Hx Guillian-[place] Syndrome: No 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 Hx Peripheral Neuropathy: No Hx Spinal Cord Injury: No Hx Head Trauma: Yes Hx Traumatic Brain Injury: No Hx Memory Loss: No Hx Concentration Difficulty: No Hx Speech Problem: No Hx Tremors: No Hx Vertigo: No Hx Dizziness: Yes Hx Syncope: No Hx Headaches: Yes Hx Aphasia: No Hx Dysphasia: No Hx Numbness: No Hx Fatigue: No Hx Neurologic Surgery: No Hx Brain Shunt: No Medical Decision Making ER Course patient left before being seen Status: other Disposition: LEFT W/OUT BEING SEEN Condition: Unknown Milena Pak DO September 25, 2017 10:14
== END 2017-09-25 12:19 | disposition left against medical advice (07) ==
LOC: EMR 10:15
DX: R55 Syncope and collapse (principal); R42 Dizziness and giddiness; Z53.21 Procedure and treatment not carried out due to patient leaving prior to being seen by health care provider
CPT/HCPCS: 99281

== ENCOUNTER 2017-11-09 09:35 | Emergency (ER) | payer OTHER ==
[~2017-11-09] VITALS: Ht 165.1 cm; Wt 81.2 kg
[2017-11-09 10:13] VITALS: BP 124/79
[2017-11-09 10:35] LABS: BASOPHILS % (AUTO) 1.4 % (0.0-2.0); HEMATOCRIT 40.2 % (37.0-47.0); HEMOGLOBIN 13.4 G/DL (12.0-16.0); LYMPHOCYTES % (AUTO) 24.7 % (20.0-45.0); MEAN CORPUSCULAR VOLUME 94 FL (80-99); MONOCYTES % (AUTO) 4.3 % (1.0-10.0); NEUTROPHILS % (AUTO) 68.7 % (45.0-75.0); PLATELET COUNT 451 K/UL (150-450); RED BLOOD COUNT 4.27 M/UL (4.20-5.40); WHITE BLOOD COUNT 7.3 K/UL (4.8-10.8)
--- NOTE | 2017-11-09 10:44 | Diagnostic Imaging Report ---
Indication: Syncope Technique: XRAY Chest 1v Comparison: 02/24/2016 Findings: Suboptimal position with the patient rotated to the left and leaning to the right. Heart size and mediastinal contours are stable compared to the prior exam. There is no focal airspace consolidation, pleural effusion or pneumothorax. No acute osseous abnormality identified. Impression: Limited exam due to suboptimal patient positioning. No definite radiographic evidence of acute cardiopulmonary disease.
[2017-11-09] MEDS ORDERED: LORazepam Inj 2mg/ml 1ml IV ONE (10:45)
[2017-11-09 10:47] LABS: ANION GAP 10 mmol/L (5-15); BLOOD UREA NITROGEN 4 mg/dL (7-18); CALCIUM 9.5 MG/DL (8.5-10.1); CARBON DIOXIDE 24 MMOL/L (21-32); CHLORIDE 103 MMOL/L (98-107); CREATININE 0.9 MG/DL (0.55-1.30); POTASSIUM 3.8 MMOL/L (3.5-5.1); SODIUM 137 MMOL/L (136-145)
[2017-11-09 11:01] LABS: ALANINE AMINOTRANSFERASE 23 U/L (12-78); ALBUMIN 3.9 G/DL (3.4-5.0); ALKALINE PHOSPHATASE 68 U/L (46-116); ASPARTATE AMINO TRANSFERASE 22 U/L (15-37); BILIRUBIN,TOTAL 0.5 MG/DL (0.2-1.0); CKMB 0.9 NG/ML (0.0-3.6); CREATINE KINASE 117 U/L (26-308)
--- NOTE | 2017-11-09 11:36 | Diagnostic Imaging Report ---
Indication: Syncope Technique: MRI the brain performed utilizing T1 sagittal, T2 axial, T1 FLAIR axial, T2 FLAIR axial, T2*GRE and diffusion axial images without gadolinium. Comparison: MRI of the brain 08/23/2017; CT of the head 08/22/2017 Findings: No diffusion abnormalities are seen on diffusion weighted imaging to suggest acute infarct. No focal signal dropout on GRE to suggest acute intracranial hemorrhage. Again noted is a tiny old catheter infarct in the inferior left lentiform nucleus. The sulci, ventricles and cisterns are stable compared to the prior exam. There is no shift of midline structures. No significant extra-axial collections of fluid or blood are demonstrated. Empty sella again noted. Expected signal flow voids are seen of the vessels of the skull base. Visualized mastoid air cells and paranasal sinuses are unremarkable. No focal bony calvarium or soft tissue lesions are seen. IMPRESSION: No evidence of acute infarct, intracranial hemorrhage, mass effect or midline shift. No significant interval change in appearance the brain compared to 08/23/2017. Tiny chronic lacunar infarct in the left inferior lentiform nucleus and empty sella again noted.
[2017-11-09] MEDS ORDERED: SOMA350 MG PO (12:08)
[2017-11-09] MEDS ORDERED: ACETAMINOPHEN-1 EAC1 ORAL (12:08)
[2017-11-09] MEDS ORDERED: ALPRAZOLAM1 MG ORAL (12:08)
[2017-11-09] MEDS ORDERED: AMOXICILLIN500 MG ORAL (12:08)
[2017-11-09 12:19] VITALS: BP 124/79
--- NOTE | 2017-11-09 14:08 | Emergency Room Report ---
History of Present Illness General Chief Complaint: Dizziness Source: Patient Present Illness HPI 57-year-old female presents ED for evaluation. Patient states she's been feeling dizziness for the last 2 weeks. Also complaining of generalized left- sided pain which she has had for many years. History of arthritis. Denies LOC. Denies headache. Denies slurred speech or facial droop. States she's been admitted here in the past for similar dizziness episodes. Supposed to see neurology as outpatient but is waiting for her appointment. Denies chest pain or shortness of breath. No other aggravating relieving factors. Denies any other associated symptoms Allergies: Coded Allergies: TRAMADOL (Verified Allergy, Unknown, 04/08/15) Patient History Past Medical History: none, DM, HTN Past Surgical History: none Pertinent Family History: none Social History: Denies: smoking, alcohol use, drug use Last Menstrual Period: NA Now: No Immunizations: UTD Reviewed Nursing Documentation: PMH: Agreed Nursing Documentation-PMH Past Medical History: No History, Except For Hx Hypertension: Yes Hx Pacemaker: No Hx Asthma: No Hx COPD: Yes Hx Diabetes: Yes - BORDERLINE Hx Cancer: No Hx Gastrointestinal Problems: Yes Hx Neurological Problems: Yes Hx Cerebrovascular Accident: No Hx Transient Ischemic Attacks: No Hx Dementia: No Hx Alzheimer's Disease: No Hx Parkinson's Disease: No Hx Meningitis: No Hx Encephalitis: No Hx Seizures: No Hx Epilepsy: No Hx Multiple Sclerosis: No Hx Cerebral Palsy: No Hx Amyotrophic Lat Sclerosis: No Hx Guillian-[place] Syndrome: No 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 Hx Peripheral Neuropathy: No Hx Spinal Cord Injury: No Hx Head Trauma: Yes Hx Traumatic Brain Injury: No Hx Memory Loss: No Hx Concentration Difficulty: No Hx Speech Problem: No Hx Tremors: No Hx Vertigo: No Hx Dizziness: Yes Hx Syncope: No Hx Headaches: Yes Hx Aphasia: No Hx Dysphasia: No Hx Numbness: No Hx Fatigue: No Hx Neurologic Surgery: No Hx Brain Shunt: No Review of Systems All Other Systems: negative except mentioned in HPI Physical Exam Vital Signs Date Time Temp Pulse Resp B/P (MAP) Pulse Ox O2 Delivery O2 Flow Rate FiO2 11/09/17 09:45 98.2 70 16 124/79 97 Room Air 98.2 Sp02 EP Interpretation: reviewed, normal General Appearance: no apparent distress, alert, GCS 15, non-toxic Head: normocephalic, atraumatic Eyes: bilateral eye normal inspection, bilateral eye PERRL ENT: hearing grossly normal, normal pharynx, no angioedema, normal voice Neck: full range of motion, supple/symm/no masses Respiratory: chest non-tender, lungs clear, normal breath sounds, speaking full sentences Cardiovascular #1: regular rate, rhythm, no edema Cardiovascular #2: 2+ carotid (R), 2+ carotid (L), 2+ radial (R), 2+ radial (L) , 2+ dorsalis pedis (R), 2+ dorsalis pedis (L) Gastrointestinal: normal bowel sounds, non tender, soft, non-distended, no guarding, no rebound Rectal: deferred Genitourinary: normal inspection, no CVA tenderness Musculoskeletal: back normal, gait/station normal, normal range of motion, non- tender Neurologic: alert, oriented x3, responsive, motor strength/tone normal, sensory intact, speech normal Psychiatric: judgement/insight normal, memory normal, mood/affect normal, no suicidal/homicidal ideation Reflexes: 3+ bicep (R), 3+ bicep (L), 3+ tricep (R), 3+ tricep (L), 3+ knee (R) , 3+ knee (L) Skin: normal color, no rash, warm/dry, well hydrated Lymphatic: no adenopathy Medical Decision Making Diagnostic Impression: Primary Impression: Dizziness Additional Impression: Opiate dependence Qualified Codes: F11.29 - Opioid dependence with unspecified opioid-induced disorder ER Course Hospital Course 57-year-old female presents ED c/o dizziness, L sided pain Differential diagnoses include: arrythmia, dehydration, intracranial bleed, seizure Clinical course Patient placed on stretcher. on cardiac surgeon. After initial history and physical I ordered labs, EKG, chest Xray, IVFs, MRI brain labs reviewed- no leukocytosis, Hb/Hct stable, electrolytes ok, troponins negative MRI brain unchanged from prior study Chest x-ray- no acute process EKG - NSR, no acute ischemic changes interpreted by me I discussed findings with the patient. Given negative workup at no focal neurological deficits I believe patient can be safely discharged to home. Symptoms are chronic and stable. Patient is to follow-up with neurology as outpatient. I. I feel this is a highly complex case requiring extensive working including EKG/Rhythm strip, Xray/CT/US, Blood/urine lab work, repeat exams while in ED, and administration of strong opiates/narcotics for pain control, admission to hospital or close patient follow up. Diagnosis - dizziness, opiate dependence Stable and discharged to home with Rx Xanax, Soma, Tylenol #3. Followup with PMD. Return to ED if symptoms recur or worsen Labs Test 11/09/17 10:00 White Blood Count 7.3 K/UL (4.8-10.8) Red Blood Count 4.27 M/UL (4.20-5.40) Hemoglobin 13.4 G/DL (12.0-16.0) Hematocrit 40.2 % (37.0-47.0) Mean Corpuscular Volume 94 FL (80-99) Mean Corpuscular Hemoglobin 31.3 PG (27.0-31.0) Mean Corpuscular Hemoglobin Concent 33.2 G/DL (32.0-36.0) Red Cell Distribution Width 11.0 % (11.6-14.8) Platelet Count 451 K/UL (150-450) Mean Platelet Volume 6.0 FL (6.5-10.1) Neutrophils (%) (Auto) 68.7 % (45.0-75.0) Lymphocytes (%) (Auto) 24.7 % (20.0-45.0) Monocytes (%) (Auto) 4.3 % (1.0-10.0) Eosinophils (%) (Auto) 1.0 % (0.0-3.0) Basophils (%) (Auto) 1.4 % (0.0-2.0) Sodium Level 137 MMOL/L (136-145) Potassium Level 3.8 MMOL/L (3.5-5.1) Chloride Level 103 MMOL/L (98-107) Carbon Dioxide Level 24 MMOL/L (21-32) Anion Gap 10 mmol/L (5-15) Blood Urea Nitrogen 4 mg/dL (7-18) Creatinine 0.9 MG/DL (0.55-1.30) Estimat Glomerular Filtration Rate > 60 mL/min (>60) Glucose Level 110 MG/DL (74-106) Calcium Level 9.5 MG/DL (8.5-10.1) Total Bilirubin 0.5 MG/DL (0.2-1.0) Aspartate Amino Transf (AST/SGOT) 22 U/L (15-37) Alanine Aminotransferase (ALT/SGPT) 23 U/L (12-78) Alkaline Phosphatase 68 U/L (46-116) Total Creatine Kinase 117 U/L (26-308) Creatine Kinase MB 0.9 NG/ML (0.0-3.6) Creatine Kinase MB Relative Index 0.7 Troponin I 0.000 ng/mL (0.000-0.056) Total Protein 7.9 G/DL (6.4-8.2) Albumin 3.9 G/DL (3.4-5.0) Globulin 4.0 g/dL Albumin/Globulin Ratio 1.0 (1.0-2.7) EKG Diagnostic Results Rate: normal Rhythm: NSR ST Segments: no acute changes ASA given to the pt in ED: No Rhythm Strip Diag. Results EP Interpretation: yes Rhythm: NSR, no PVC's, no ectopy Chest X-Ray Diagnostic Results Chest X-Ray Diagnostic Results : Chest X-Ray Ordered: Yes # of Views/Limited/Complete: 1 View Indication: Other - dizziness EP Interpretation: Yes Interpretation: no consolidation, no effusion, no pneumothorax, no acute cardiopulmonary disease Impression: No acute disease Electronically Signed by: Electronically signed by Дмитрий Brown MD CT/MRI/US Diagnostic Results CT/MRI/US Diagnostic Results : Imaging Test Ordered: MRI brain Impression no acute process. unchanged from prior study Last Vital Signs Date Time Temp Pulse Resp B/P (MAP) Pulse Ox O2 Delivery O2 Flow Rate FiO2 11/09/17 12:19 98.2 64 16 124/79 97 Room Air 98.2 Status: improved Disposition: HOME, SELF-CARE Condition: Stable Scripts Alprazolam* (XANAX*) 1 Mg Tablet 1 MG ORAL TID, #3 TAB Prov: Дмитрий Brown MD 11/09/17 Carisoprodol* (SOMA*) 350 Mg Tablet 350 MG PO Q6H for 3 Days, TAB Prov: Дмитрий Brown MD 11/09/17 Acetaminophen With Codeine (T#3) (TYLENOL #3 TAB*) Y Tab 1 TAB ORAL Q8H PRN for For Pain, #20 TAB Prov: Дмитрий Brown MD 11/09/17 Amoxicillin* (AMOXIL*) 500 Mg Capsule 500 MG ORAL EVERY 8 HOURS for 10 Days, CAP Prov: Дмитрий Brown MD 11/09/17 Referrals: NON PHYSICIAN (PCP) Patient Instructions: Дмитрий Moody MD Nov 09, 2017 14:08
--- NOTE | 2017-11-10 14:21 | Cardiology Report ---
APPROVED REPORT EKG Measurement Heart [id number] Sinus bradycardia Otherwise normal ECG
== END 2017-11-09 12:22 | disposition home or self-care (01) ==
LOC: EMR 10:09
DX: R42 Dizziness and giddiness (principal); F11.20 Opioid dependence, uncomplicated; R52 Pain, unspecified; M19.019 Primary osteoarthritis, unspecified shoulder; Z88.6 Allergy status to analgesic agent; I10 Essential (primary) hypertension; J44.9 Chronic obstructive pulmonary disease, unspecified; R73.03 Prediabetes; G82.20 Paraplegia, unspecified
CPT/HCPCS: 36415; 70551; 71045; 80053; 82550; 82553; 84484; 85025; 93005; 96360; 96361; 96374; 99284

== ENCOUNTER 2018-01-21 18:14 | Emergency (ER) | payer OTHER ==
[~2018-01-21] VITALS: Ht 165.1 cm; Wt 81.6 kg
[~2018-01-21 18:14] MED LIST changes: +ALPRAZOLAM1 MG ORAL; +AMOXICILLIN500 MG ORAL; +SOMA350 MG PO
[2018-01-21 18:27] VITALS: BP 145/89
[2018-01-21 19:45] VITALS: BP 132/89
--- NOTE | 2018-01-21 19:53 | Emergency Room Report ---
History of Present Illness General Chief Complaint: Headache Source: Medical Record Present Illness HPI patient is a 57-year-old female with history of hypothyroidism, thyroid surgery , hypertension controlled with antihypertensives and claiming to have a history of stroke, here complaining of pressure and pain in the left side of her head and pain in her left eye. Complains of dizziness and claims that she lost consciousness one day ago after she fell and had her head to the bathroom floor. Eyes vision changes, chest pain, shortness of breath, abdominal pain and all other associated symptoms is compliant with taking her blood pressure medication blood pressure is controlled today Allergies: Coded Allergies: TRAMADOL (Verified Allergy, Unknown, 04/08/15) Patient History Past Medical History: see triage record Pertinent Family History: none Last Menstrual Period: unk Immunizations: UTD Reviewed Nursing Documentation: PMH: Agreed; PSxH: Agreed Nursing Documentation-PMH Hx Hypertension: Yes Hx Pacemaker: No Hx Asthma: No Hx COPD: Yes Hx Diabetes: Yes - BORDERLINE Hx Cancer: No Hx Gastrointestinal Problems: Yes Hx Neurological Problems: Yes Hx Cerebrovascular Accident: No Hx Transient Ischemic Attacks: No Hx Dementia: No Hx Alzheimer's Disease: No Hx Parkinson's Disease: No Hx Meningitis: No Hx Encephalitis: No Hx Seizures: No Hx Epilepsy: No Hx Multiple Sclerosis: No Hx Cerebral Palsy: No Hx Amyotrophic Lat Sclerosis: No Hx Guillian-Hill[place] Syndrome: No 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 Hx Peripheral Neuropathy: No Hx Spinal Cord Injury: No Hx Head Trauma: Yes Hx Traumatic Brain Injury: No Hx Memory Loss: No Hx Concentration Difficulty: No Hx Speech Problem: No Hx Tremors: No Hx Vertigo: No Hx Dizziness: Yes Hx Syncope: No Hx Headaches: Yes Hx Aphasia: No Hx Dysphasia: No Hx Numbness: No Hx Fatigue: No Hx Neurologic Surgery: No Hx Brain Shunt: No Review of Systems All Other Systems: negative except mentioned in HPI Physical Exam Vital Signs Date Time Temp Pulse Resp B/P (MAP) Pulse Ox O2 Delivery O2 Flow Rate FiO2 01/21/18 18:17 98.3 77 16 145/89 97 Room Air 98.2 Sp02 EP Interpretation: reviewed, normal General Appearance: normal inspection, no apparent distress, alert, GCS 15 Head: normocephalic, atraumatic Eyes: bilateral eye normal inspection, bilateral eye PERRL ENT: normal ENT inspection, normal pharynx, normal voice Neck: normal inspection, full range of motion, supple, no bony tend Respiratory: normal inspection, chest non-tender, lungs clear, no rhonchi, no wheezing Cardiovascular #1: normal inspection, normal peripheral pulses, no edema, no gallop, no murmur, normal capillary refill Cardiovascular #2: 2+ carotid (R), 2+ carotid (L), 2+ radial (R), 2+ radial (L) Gastrointestinal: normal inspection, normal bowel sounds, non tender, soft Rectal: deferred Genitourinary: deferred Musculoskeletal: normal inspection, back normal, digits/nails normal, gait/ station normal, non-tender Neurologic: normal inspection, alert, oriented x3, responsive, motor strength/ tone normal, sensory intact Psychiatric: normal inspection, judgement/insight normal, memory normal, no suicidal/homicidal ideation, no delusions Skin: normal inspection, normal color, no rash, warm/dry Lymphatic: normal inspection, no adenopathy Medical Decision Making PA Attestation all diagnoses and treatment plan were reviewed and discussed with my supervising physician Dr. Proctor Diagnostic Impression: Primary Impression: Headache ER Course patient is a 57-year-old female with history of hypothyroidism, thyroid surgery , hypertension controlled with antihypertensives and claiming to have a history of stroke, here complaining of pressure and pain in the left side of her head and pain in her left eye. Complains of dizziness and claims that she lost consciousness one day ago after she fell and had her head to the bathroom floor. Eyes vision changes, chest pain, shortness of breath, abdominal pain and all other associated symptoms is compliant with taking her blood pressure medication blood pressure is controlled today Ddx considered but are not limited to headache unspecified, hypertensive emergency, cerebral hematoma Vital signs: are WNL, pt. is afebrile H&PE are most consistent with headache on ORDERS: head CT no contrast, Tylenol ED INTERVENTIONS: None required at this time. DISCHARGE: At this time pt. is stable for d/c to home. Will provide printed patient care instructions, and any necessary prescriptions. Care plan and follow up instructions have been discussed with the patient prior to discharge. take medication as directed follow with the primary care provider for further assessment of hypertension is unilateral weakness return to the emergency room for further workup and possible stroke CT/MRI/US Diagnostic Results CT/MRI/US Diagnostic Results : Imaging Test Ordered: head CT noncontrast Impression no hematoma noted no acute changes according to radiologist report Last Vital Signs Date Time Temp Pulse Resp B/P (MAP) Pulse Ox O2 Delivery O2 Flow Rate FiO2 01/21/18 19:45 98.2 73 18 132/89 98 98.2 01/21/18 18:27 Room Air Disposition: HOME, SELF-CARE Condition: Stable Scripts Acetaminophen* (TYLENOL EXTRA STRENGTH*) 500 Mg Tablet 500 MG ORAL Q8HR PRN for Mild Pain/Temp > 100.5, #30 TAB 0 Refills Prov: Nadia Martini 01/21/18 Referrals: [facility],REFERRING (PCP) Patient Instructions: General Headache Without Cause Additional Instructions: take blood pressure medication as directed and follow with a primary care provider if headache continues if numbness unilateral weakness difficulty with speech return to the emergency room Nadia Martini Jan 21, 2018 19:53
[2018-01-21] MEDS ORDERED: TYLENOL EXTRA500 MG ORAL (19:54)
[2018-01-21 20:04] VITALS: BP 132/89
--- NOTE | 2018-01-22 08:12 | Diagnostic Imaging Report ---
Indication: Headache status post trauma Technique: Continuous helical CT scanning of the head was performed utilizing automated exposure control without intravenous contrast material. Axial and coronal reconstructions were obtained. Comparison: MRI of the brain 11/09/2017; CT of the head 08/22/2017 and MRI of the brain 08/23/2017. CT dose: Total DLP 1410.8 mGycm; CTDI vol 70.38 mGy Findings: There is no acute intracranial hemorrhage, mass effect, midline shift or evidence suggest cortical edema. [place]-white differentiation appears preserved. The previously described tiny lacunar infarct in the left lentiform nucleus is better appreciated on the prior MRIs. Some atherosclerotic vascular calcifications noted within the bilateral internal carotid arteries. The ventricles, cisterns and sulci are within normal limits for age and stable compared to the prior exam. Visualized mastoid air cells and paranasal sinuses are unremarkable. No focal lesions of the bony calvarium or soft tissues of the scalp are seen. IMPRESSION: No evidence of acute intracranial hemorrhage, mass effect or cortical edema. MRI may be obtained for more sensitive evaluation as clinically indicated. This corresponds with the statrad preliminary report. The CT scanner at [facility] is accredited by the [employer] and the scans are performed using protocols designed to limit radiation exposure to as low as reasonably achievable to attain images of sufficient resolution adequate for diagnostic evaluation.
== END 2018-01-21 20:06 | disposition home or self-care (01) ==
LOC: EMR 18:35
DX: R51 Headache (principal); I10 Essential (primary) hypertension; R73.03 Prediabetes
CPT/HCPCS: 70450; 99284

== ENCOUNTER 2018-02-16 07:30 | Emergency (ER) | payer OTHER ==
[~2018-02-16] VITALS: Ht 166.4 cm; Wt 82.1 kg
[~2018-02-16 07:30] MED LIST changes: +TYLENOL EXTRA500 MG ORAL
[2018-02-16 07:44] VITALS: BP 132/79
--- NOTE | 2018-02-16 07:53 | Emergency Room Report ---
History of Present Illness General Chief Complaint: Upper Extremity Injury Source: Patient, Medical Record Present Illness HPI 57-year-old female with history of COPD, diabetes, hypertension presents with mechanical slip and fall 4 days ago and left hand pain ever since, she reports that she's iced it, but is not 100% better, she wanted to make sure it wasn't fractured. She denies pain anywhere else, she reports she's not had a loss consciousness and it was a minor injury but the pain is resolved so she came in for evaluation. She also reports that she's had a mild cough recently, but no sputum production, no hemoptysis no chest pain, no other symptoms. Allergies: Coded Allergies: TRAMADOL (Verified Allergy, Unknown, 04/08/15) Patient History Past Medical History: see triage record Last Menstrual Period: 3 yrs ago Reviewed Nursing Documentation: PMH: Agreed; PSxH: Agreed Nursing Documentation-PMH Past Medical History: No History, Except For Hx Cardiac Problems: Yes - Heart valve problem, Hyperparathyroidism, vocal cord surgery, osteoporosis Hx Hypertension: Yes Hx Pacemaker: No Hx Asthma: No Hx COPD: Yes Hx Diabetes: Yes - BORDERLINE (not on meds) Hx Cancer: No Hx Gastrointestinal Problems: Yes - GERD Hx Neurological Problems: Yes Hx Cerebrovascular Accident: No Hx Transient Ischemic Attacks: No Hx Dementia: No Hx Alzheimer's Disease: No Hx Parkinson's Disease: No Hx Meningitis: No Hx Encephalitis: No Hx Seizures: No Hx Epilepsy: No Hx Multiple Sclerosis: No Hx Cerebral Palsy: No Hx Amyotrophic Lat Sclerosis: No Hx Guillian-Ruth Syndrome: No 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 Hx Peripheral Neuropathy: No Hx Spinal Cord Injury: No Hx Head Trauma: Yes Hx Traumatic Brain Injury: No Hx Memory Loss: No Hx Concentration Difficulty: No Hx Speech Problem: No Hx Tremors: No Hx Vertigo: No Hx Dizziness: Yes Hx Syncope: No Hx Headaches: Yes Hx Aphasia: No Hx Dysphasia: No Hx Numbness: No Hx Fatigue: No Hx Neurologic Surgery: No Hx Brain Shunt: No Review of Systems Constitutional: Denies: fever Eye: Denies: acuity changes Respiratory: Denies: cough, shortness of breath Cardiovascular: Denies: chest pain Gastrointestinal: Denies: nausea, vomiting Skin: Denies: rash Neurological: Denies: headache Physical Exam Vital Signs Date Time Temp Pulse Resp B/P (MAP) Pulse Ox O2 Delivery O2 Flow Rate FiO2 02/16/18 07:35 98.5 79 18 135/82 96 Room Air 98.4 General Appearance: well appearing, no apparent distress, alert, non-toxic Head: normocephalic, atraumatic Eyes: bilateral eye EOMI ENT: hearing grossly normal, normal voice Neck: full range of motion, supple Respiratory: normal inspection, chest non-tender, lungs clear, normal breath sounds, no respiratory distress, no retraction, no accessory muscle use, no wheezing, speaking full sentences Cardiovascular #1: normal inspection, normal peripheral pulses, regular rate, rhythm, no edema, no gallop, no JVD, no murmur, no rub Cardiovascular #2: 2+ radial (R), 2+ radial (L) Gastrointestinal: normal inspection, non tender, soft, no mass, no guarding, no rebound Genitourinary: no CVA tenderness Musculoskeletal: no calf tenderness, other - mild thenar eminence tenderness, no deformity, no limitation in ROM Neurologic: alert, motor strength/tone normal, sensory intact, normal gait, speech normal Psychiatric: normal inspection, judgement/insight normal, mood/affect normal Skin: no rash Medical Decision Making Diagnostic Impression: Primary Impression: Contusion ER Course patient with normal xr of hand, where she has pain from a fall few days ago; also c/o cough, but that is chronic from her known bronchitis; normal lung exam. Will dc with albuterol, and motrin for hand pain. Last Vital Signs Date Time Temp Pulse Resp B/P (MAP) Pulse Ox O2 Delivery O2 Flow Rate FiO2 02/16/18 07:44 98.4 76 18 132/79 96 Room Air 98.4 Disposition: HOME, SELF-CARE Condition: Stable SHAHLA SALGUERO M.D Feb 16, 2018 07:53
[2018-02-16] MEDS ORDERED: Ketorolac 30mg Inj IM ONE (08:15)
[2018-02-16] MEDS ORDERED: ALBUTEROL SULF8.5 GM INH (08:50)
[2018-02-16] MEDS ORDERED: IBUPROFEN600 MG ORAL (08:50)
[2018-02-16 09:13] VITALS: BP 132/79
--- NOTE | 2018-02-16 10:07 | Diagnostic Imaging Report ---
Indication: left hand pain. Findings: 3 views of the left hand were obtained. Normal alignment is demonstrated. There is DJD at the base of the thumb. No acute fractures, erosions, or periosteal reaction are seen. Soft tissues are unremarkable. Impression: No acute findings.
== END 2018-02-16 09:13 | disposition home or self-care (01) ==
LOC: EMR 07:59
DX: S60.222A Contusion of left hand, initial encounter (principal); M79.642 Pain in left hand; E11.9 Type 2 diabetes mellitus without complications; I10 Essential (primary) hypertension; W01.0XXA Fall on same level from slipping, tripping and stumbling without subsequent striking against object, initial encounter; Y93.9 Activity, unspecified; Y92.9 Unspecified place or not applicable; Y99.9 Unspecified external cause status
CPT/HCPCS: 73130; 96372; 99283; J1885

== ENCOUNTER 2018-02-22 08:50 | Emergency (ER) | payer OTHER ==
[~2018-02-22] VITALS: Ht 165.1 cm; Wt 81.6 kg
[~2018-02-22 08:50] MED LIST changes: +ALBUTEROL SULF8.5 GM INH
--- NOTE | 2018-02-22 09:13 | Emergency Room Report ---
History of Present Illness General Chief Complaint: Chest Pain Source: Patient, Medical Record Present Illness HPI Patient presents with complaints of pain to the left chest area however with further discussion reports that she has pain to the left side of her body including left head left arm Patient reports that his from multiple previous injuries She describes having previous thyroid surgery Also reports that she has COPD and feels that she cannot get the phlegm out Denies any vomiting or diarrhea and eyes any fevers or chills patient reports that she is in the process of trying to obtain pain management Allergies: Coded Allergies: TRAMADOL (Verified Allergy, Unknown, 04/08/15) Patient History Past Medical History: see triage record Pertinent Family History: none Last Menstrual Period: at 54 yrs Reviewed Nursing Documentation: PMH: Agreed; PSxH: Agreed Nursing Documentation-PMH Past Medical History: No History, Except For Hx Cardiac Problems: No - Heart valve problem, Hyperparathyroidism, vocal cord surgery, osteoporosis Hx Hypertension: Yes Hx Pacemaker: No Hx Asthma: No Hx COPD: Yes Hx Diabetes: Yes - BORDERLINE (not on meds) Hx Cancer: No Hx Gastrointestinal Problems: No - GERD History Of Psychiatric Problem: No - panic attack Hx Neurological Problems: Yes Hx Cerebrovascular Accident: No Hx Transient Ischemic Attacks: No Hx Dementia: No Hx Alzheimer's Disease: No Hx Parkinson's Disease: No Hx Meningitis: No Hx Encephalitis: No Hx Seizures: No Hx Epilepsy: No Hx Multiple Sclerosis: No Hx Cerebral Palsy: No Hx Amyotrophic Lat Sclerosis: No Hx Guillian-[place] Syndrome: No 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 Hx Peripheral Neuropathy: No Hx Spinal Cord Injury: No Hx Head Trauma: Yes Hx Traumatic Brain Injury: No Hx Memory Loss: No Hx Concentration Difficulty: No Hx Speech Problem: No Hx Tremors: No Hx Vertigo: No Hx Dizziness: Yes Hx Syncope: No Hx Headaches: Yes Hx Aphasia: No Hx Dysphasia: No Hx Numbness: No Hx Fatigue: No Hx Neurologic Surgery: No Hx Brain Shunt: No Review of Systems All Other Systems: negative except mentioned in HPI Physical Exam Vital Signs Date Time Temp Pulse Resp B/P (MAP) Pulse Ox O2 Delivery O2 Flow Rate FiO2 02/22/18 08:53 98.9 75 16 155/87 97 Room Air 99.0 Sp02 EP Interpretation: reviewed, normal General Appearance: well appearing, no apparent distress Head: normocephalic, atraumatic Eyes: bilateral eye PERRL, bilateral eye EOMI ENT: hearing grossly normal, normal pharynx, TMs + canals normal, uvula midline Neck: full range of motion, supple, no meningismus, no bony tend Respiratory: lungs clear, normal breath sounds, no rhonchi, no respiratory distress, no retraction, no accessory muscle use Cardiovascular #1: normal peripheral pulses, regular rate, rhythm, no edema, no gallop, no JVD, no murmur Gastrointestinal: normal bowel sounds, non tender, soft, no mass, no organomegaly, non-distended, no guarding, no hernia, no pulsatile mass, no rebound Genitourinary: no CVA tenderness Musculoskeletal: normal inspection Neurologic: oriented x3, responsive, oracle fusion consultant III-XII nml as tested, motor strength/ tone normal, sensory intact Psychiatric: mood/affect normal Skin: normal color, no rash, warm/dry, palpation normal Lymphatic: normal inspection, no adenopathy Medical Decision Making Diagnostic Impression: Primary Impression: Chest pain ER Course Medical decision-making Patient's EKG is normal Description sounds to be consistent with some chronicity as well There is some mechanical component as well Patient feels better with breathing treatment X-ray imaging also normal and patient stable for close follow-up EKG Diagnostic Results Rate: normal Rhythm: NSR ST Segments: no acute changes Rhythm Strip Diag. Results EP Interpretation: yes Rate: 77 Rhythm: NSR, no PVC's, no ectopy Chest X-Ray Diagnostic Results Chest X-Ray Diagnostic Results : Chest X-Ray Ordered: Yes # of Views/Limited/Complete: 1 View Indication: Chest Pain EP Interpretation: Yes Interpretation: no consolidation, no effusion, no pneumothorax Impression: No acute disease Electronically Signed by: Milena Pak DO Last Vital Signs Date Time Temp Pulse Resp B/P (MAP) Pulse Ox O2 Delivery O2 Flow Rate FiO2 02/22/18 09:00 77 16 Room Air 02/22/18 08:53 98.9 155/87 97 99.0 Status: improved Disposition: HOME, SELF-CARE Condition: Improved Scripts Albuterol Sulfate* (ALBUTEROL SULFATE MDI*) 8.5 Gm Hfa.aer.ad 2 PUFF INH Q6H, #1 EA 0 Refills Prov: Milena Pak DO 02/22/18 Acetaminophen* (TYLENOL EXTRA STRENGTH*) 500 Mg Tablet 500 MG ORAL Q8H PRN for Prn Headache/Temp > 101, #12 TAB 0 Refills Prov: Milena Pak DO 02/22/18 Additional Instructions: Patient is provided with the discharge instructions notified to follow up with primary doctor in the next 2-3 days otherwise return to the er with any worsening symptoms. Please note that this report is being documented using DRAGON technology. This can lead to erroneous entry secondary to incorrect interpretation by the dictating instrument. Milena Pak DO Feb 22, 2018 09:13
[2018-02-22] MEDS ORDERED: Morphine Sulfate 4mg/ml Inj (IV/IM USE ONLY) IM ONE (09:15)
[2018-02-22] MEDS ORDERED: Albuterol ud Inhalation HHN ONE (09:15)
[2018-02-22] MEDS ORDERED: Ipratropium 0.02% Inh Soln 2.5ml UD HHN ONE (09:15)
[2018-02-22 09:49] VITALS: BP 157/81
[2018-02-22] MEDS ORDERED: TYLENOL EXTRA500 MG ORAL (10:44)
[2018-02-22] MEDS ORDERED: ALBUTEROL SULF8.5 GM INH (10:44)
[2018-02-22 10:49] VITALS: BP 135/78
--- NOTE | 2018-02-22 12:40 | Diagnostic Imaging Report ---
Indication: Dyspnea Comparison: 11/09/2017 A single view chest radiograph was obtained. Findings: No definite infiltrate or pulmonary vascular congestion identified. The heart is normal in size. The aorta is mildly enlarged consistent with atherosclerotic vascular disease. The bones are osteopenic. Impression: No acute disease
== END 2018-02-22 10:50 | disposition home or self-care (01) ==
LOC: EMR 09:10
DX: R07.9 Chest pain, unspecified (principal); J44.9 Chronic obstructive pulmonary disease, unspecified; I10 Essential (primary) hypertension; K21.9 Gastro-esophageal reflux disease without esophagitis; E21.3 Hyperparathyroidism, unspecified; M81.0 Age-related osteoporosis without current pathological fracture; Z88.5 Allergy status to narcotic agent
CPT/HCPCS: 71045; 93005; 94640; 94664; 96372; 99284; J2270

== ENCOUNTER 2018-02-26 09:28 | Emergency (ER) | payer OTHER ==
[~2018-02-26] VITALS: Ht 165.1 cm; Wt 81.6 kg
[2018-02-26] MEDS ORDERED: ALPRAZolam 0.25mg tab ORAL ONE (10:15)
--- NOTE | 2018-02-26 10:19 | Emergency Room Report ---
History of Present Illness General Chief Complaint: Upper Respiratory Illness Source: Patient Present Illness HPI The patient states that for the past 2 weeks she has had an ongoing respiratory infection. She does have a history of COPD and continues to smoke tobacco. She does have a home nebulizer machine and inhalers. She states that her cough continues. She denies that she has been on any antibiotics. She states that she has had a thick sputum production. She denies fever or chills. She denies nausea or vomiting. She states that she also feels anxious and would like treatment for her anxiety. She denies chest pain or abdominal pain. She has no other complaints. Allergies: Coded Allergies: TRAMADOL (Verified Allergy, Unknown, 04/08/15) Patient History Past Medical History: see triage record, HTN, COPD, other - L. sided weakness, thyroidectomy/CA Social History: Reports: smoking; Denies: alcohol use, drug use Now: No Reviewed Nursing Documentation: PMH: Agreed; PSxH: Agreed Nursing Documentation-PMH Hx Cardiac Problems: No - Heart valve problem, Hyperparathyroidism, vocal cord surgery, osteoporosis Hx Hypertension: Yes Hx Pacemaker: No Hx Asthma: No Hx COPD: Yes Hx Diabetes: Yes - BORDERLINE (not on meds) Hx Cancer: No Hx Gastrointestinal Problems: No - GERD Hx Neurological Problems: Yes Hx Cerebrovascular Accident: No Hx Transient Ischemic Attacks: No Hx Dementia: No Hx Alzheimer's Disease: No Hx Parkinson's Disease: No Hx Meningitis: No Hx Encephalitis: No Hx Seizures: No Hx Epilepsy: No Hx Multiple Sclerosis: No Hx Cerebral Palsy: No Hx Amyotrophic Lat Sclerosis: No Hx Guillian-[place] Syndrome: No 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 Hx Peripheral Neuropathy: No Hx Spinal Cord Injury: No Hx Head Trauma: Yes Hx Traumatic Brain Injury: No Hx Memory Loss: No Hx Concentration Difficulty: No Hx Speech Problem: No Hx Tremors: No Hx Vertigo: No Hx Dizziness: Yes Hx Syncope: No Hx Headaches: Yes Hx Aphasia: No Hx Dysphasia: No Hx Numbness: No Hx Fatigue: No Hx Neurologic Surgery: No Hx Brain Shunt: No Review of Systems All Other Systems: negative except mentioned in HPI Physical Exam Vital Signs Date Time Temp Pulse Resp B/P (MAP) Pulse Ox O2 Delivery O2 Flow Rate FiO2 02/26/18 09:29 98.4 85 18 153/90 97 Room Air 98.4 Sp02 EP Interpretation: reviewed, normal General Appearance: no apparent distress, alert, GCS 15, non-toxic Head: normocephalic, atraumatic Eyes: bilateral eye normal inspection, bilateral eye PERRL ENT: hearing grossly normal, normal pharynx, no angioedema, normal voice Neck: full range of motion, supple/symm/no masses Respiratory: chest non-tender, lungs clear, normal breath sounds, no respiratory distress, no retraction, no accessory muscle use, speaking full sentences Cardiovascular #1: regular rate, rhythm, no edema Gastrointestinal: normal bowel sounds, non tender, soft, non-distended, no guarding, no rebound Rectal: deferred Musculoskeletal: back normal, gait/station normal, normal range of motion, non- tender Neurologic: alert, oriented x3, responsive, motor strength/tone normal, sensory intact, speech normal Psychiatric: judgement/insight normal, memory normal, mood/affect normal, no suicidal/homicidal ideation Skin: normal color, no rash, warm/dry, well hydrated Medical Decision Making Diagnostic Impression: Primary Impression: acute bronchitis ER Course This patient has underlying COPD. However, on lung exam there is no wheezing the patient has no respiratory distress. Patient is requesting Xanax and then later requested narcotics. I suspect this patient is drug seeking. I did give the patient oral Xanax here in the emergency department. I educated the patient that I would not be prescribing any controlled substances. She was educated that if she needed these medication she should see his psychiatrist and get these medications from a provider that she can see regularly. I educated her that the emergency department is not an appropriate or safe place to obtain these types medications. I did offer the patient an SSRI and she agreed. I will also place the patient on a Z-Shubham given her underlying COPD and prolonged cough. The patient declined a chest x-ray. Overall, the patient's evaluation is benign and reassuring. The patient is nontoxic and there is no emergency medical condition identified. The patient is given close return precautions and follow-up instructions. Last Vital Signs Date Time Temp Pulse Resp B/P (MAP) Pulse Ox O2 Delivery O2 Flow Rate FiO2 02/26/18 09:44 85 18 Room Air 02/26/18 09:29 98.4 153/90 97 98.4 Status: improved Disposition: HOME, SELF-CARE Condition: Improved Referrals: [facility],REFERRING (PCP) Colianno,Kate M. DO Feb 26, 2018 10:19
[2018-02-26] MEDS ORDERED: PAXIL CR12.5 MG ORAL (10:26)
[2018-02-26] MEDS ORDERED: ZITHROMAX250 MG ORAL (10:26)
[2018-02-26] MEDS ORDERED: Ketorolac 60mg Inj IM ONE (10:30)
[2018-02-26 10:33] VITALS: BP 149/92
[2018-02-26 10:34] VITALS: BP 153/90
== END 2018-02-26 10:33 | disposition home or self-care (01) ==
LOC: EMR 10:00
DX: J20.9 Acute bronchitis, unspecified (principal); J44.9 Chronic obstructive pulmonary disease, unspecified; F17.200 Nicotine dependence, unspecified, uncomplicated; I10 Essential (primary) hypertension; K21.9 Gastro-esophageal reflux disease without esophagitis
CPT/HCPCS: 96372; 99283

== ENCOUNTER 2018-03-21 13:50 | Emergency (ER) | payer OTHER ==
[~2018-03-21] VITALS: Ht 165.1 cm; Wt 81.6 kg
[~2018-03-21 13:50] MED LIST changes: +PAXIL CR12.5 MG ORAL
[2018-03-21 14:27] VITALS: BP 136/82
[2018-03-21] MEDS ORDERED: Norco 5mg/325mg tab ORAL ONE (14:45)
[2018-03-21 14:58] VITALS: BP 136/82
--- NOTE | 2018-03-21 17:30 | Emergency Room Report ---
History of Present Illness General Chief Complaint: General Complaint Source: Patient Present Illness HPI 57-year-old female, presenting with sensation in her throat for the last 6 months, says that she has chronic pain there, in the past has had polyps removed from her vocal cords. Thinks that she has another polyp. She has been breathing fine. No nausea no vomiting. Has been eating and drinking well. Says that she she usually gets George but her doctor said that she cannot get another refill for another 3 months. No fever no chills Allergies: Coded Allergies: TRAMADOL (Verified Allergy, Unknown, 04/08/15) Patient History Past Medical History: see triage record Past Surgical History: none Pertinent Family History: none Reviewed Nursing Documentation: PMH: Agreed; PSxH: Agreed Nursing Documentation-PMH Past Medical History: No History, Except For Hx Cardiac Problems: No - Heart valve problem, Hyperparathyroidism, vocal cord surgery, osteoporosis Hx Hypertension: Yes Hx Pacemaker: No Hx Asthma: No Hx COPD: Yes Hx Diabetes: Yes - BORDERLINE (not on meds) Hx Cancer: No Hx Gastrointestinal Problems: No - GERD Hx Neurological Problems: Yes Hx Cerebrovascular Accident: No Hx Transient Ischemic Attacks: No Hx Dementia: No Hx Alzheimer's Disease: No Hx Parkinson's Disease: No Hx Meningitis: No Hx Encephalitis: No Hx Seizures: No Hx Epilepsy: No Hx Multiple Sclerosis: No Hx Cerebral Palsy: No Hx Amyotrophic Lat Sclerosis: No Hx [place] Syndrome: No 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 Hx Peripheral Neuropathy: No Hx Spinal Cord Injury: No Hx Head Trauma: Yes Hx Traumatic Brain Injury: No Hx Memory Loss: No Hx Concentration Difficulty: No Hx Speech Problem: No Hx Tremors: No Hx Vertigo: No Hx Dizziness: Yes Hx Syncope: No Hx Headaches: Yes Hx Aphasia: No Hx Dysphasia: No Hx Numbness: No Hx Fatigue: No Hx Neurologic Surgery: No Hx Brain Shunt: No Review of Systems All Other Systems: negative except mentioned in HPI Physical Exam Vital Signs Date Time Temp Pulse Resp B/P (MAP) Pulse Ox O2 Delivery O2 Flow Rate FiO2 03/21/18 14:13 98.2 76 14 136/82 98 Room Air Sp02 EP Interpretation: reviewed, normal General Appearance: mild distress Head: normocephalic, atraumatic Eyes: bilateral eye normal inspection, bilateral eye PERRL, bilateral eye EOMI ENT: normal ENT inspection, normal pharynx, normal voice, moist mucus membranes , other - No stridor, no hoarse voice, speaking full sentences without any difficulty Neck: normal inspection, full range of motion, supple Respiratory: normal inspection, lungs clear, normal breath sounds, no respiratory distress, no retraction, no wheezing, speaking full sentences, chest symmetrical Cardiovascular #1: normal inspection, regular rate, rhythm, normal capillary refill Cardiovascular #2: 2+ radial (R), 2+ radial (L) Gastrointestinal: normal inspection, non tender, soft, non-distended, no guarding Musculoskeletal: normal inspection, back normal, normal range of motion, non- tender Neurologic: normal inspection, alert, oriented x3, responsive, motor strength/ tone normal, sensory intact, normal gait, speech normal Psychiatric: normal inspection, judgement/insight normal, memory normal Skin: normal inspection, normal color, no rash, warm/dry, well hydrated, normal turgor Medical Decision Making Diagnostic Impression: Primary Impression: Chronic throat pain ER Course 57-year-old female with chronic throat pain DDX: Chronic throat pain, laryngitis, bronchitis Plan: None at this time, reassurance ER course: Patient has remained stable during ED stay. She was stating that she wants both George as well as Xanax. I told her that I am uncomfortable giving her both of these medications as this can make her drowsy. Also demanding prescriptions for opiates. I checked her cures report, she has had several opiate and benzo refills this year, about 6 each time, I am uncomfortable giving her prescription for this due to possibility of overdose Disposition: Patient was given one George, and then reportedly eloped from the emergency room. She had been in stable condition condition prior Please note that this Emergency Department Report was dictated using [employer] operator technology software, occasionally this can lead to erroneous entry secondary to interpretation by the dictation equipment Last Vital Signs Date Time Temp Pulse Resp B/P (MAP) Pulse Ox O2 Delivery O2 Flow Rate FiO2 03/21/18 17:05 76 14 Room Air 03/21/18 14:58 98.2 136/82 98 Disposition: ELOPED Condition: Stable Patient Instructions: Chronic Pain Additional Instructions: PLEASE SEE AN ENT DOCTOR IN 1-2 WEEKS Dinh Dominguez M.D. Mar 21, 2018 17:30
== END 2018-03-21 14:58 | disposition home or self-care (01) ==
LOC: EMR 14:37
DX: R07.0 Pain in throat (principal); G89.29 Other chronic pain; I10 Essential (primary) hypertension; J44.9 Chronic obstructive pulmonary disease, unspecified; K21.9 Gastro-esophageal reflux disease without esophagitis
CPT/HCPCS: 99282